=== PATIENT | female | born 1960 | race Caucasian/White ===

== ENCOUNTER 2016-04-09 08:06 | Day surgery (SDC) | payer BC ==
[2016-04-03 09:02] VITALS: BMI 31.8
[~2016-04-09 08:06] MED LIST: LACTATED RINGERS 1,000 ML IV SCH
[2016-04-09] MEDS ORDERED: LIDOCAINE 1% 20 ML VIAL (10MG/ML) FOR IV START INTRADERMA ONE (08:23)
[2016-04-09 08:28] VITALS: RESP 16; TEMP 97.9
[2016-04-09 08:35] LABS: Glucose,Whole Blood 146 mg/dL (75-99)
[2016-04-09] MEDS ORDERED: BUPIVACAINE (PF) 0.5% 30 ML VIAL ONE (08:38)
[2016-04-09] MEDS ORDERED: fentaNYL (PF) 50 MCG/ML 2 ML AMP ONE (08:38)
[2016-04-09] MEDS ORDERED: MIDAZOLAM 2 MG/2 ML VIAL ONE (08:38)
[2016-04-09] MEDS ORDERED: TRIAMCINOLONE ACETONIDE 40 MG/ML 1 ML VIAL ONE (08:38)
[2016-04-09 09:18] VITALS: PULSE 99
--- NOTE | 2016-04-09 09:27 | FL ---
EXAMINATION TYPE: FL guided pain mgmt statistic DATE OF EXAM: 04/09/2016 9:20 AM HISTORY: Flouroscopy time 15 seconds of fluoroscopy provided. IMPRESSION: 1. Fluoroscopy time.
[2016-04-09 09:31] VITALS: BP 130/86
--- NOTE | 2016-04-09 09:53 | P.PCN ---
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 POSTOPERATIVE DIAGNOSIS: L3-L4, L4-L5, and L5-S1 spondylosis without myelopathy and facet arthropathy. PROCEDURE DESCRIPTION: Patient presents for L3, L4 and L5 diagnostic medial branch blocks under fluoroscopic guidance. The procedure is performed using fluoroscopic guidance during needle placement to assure proper position and maximize safety. ANESTHESIA: Local with 1% lidocaine. Conscious sedation with Versed/fentanyl. EBL: Minimal PROCEDURE INDICATION: Patient with lumbar facet arthropathy signs and symptoms, here for diagnostic medial branch block#1. Pt does not take any blood thinning medications. PROCEDURE DESCRIPTION: The patient was seen and identified in the preoperative area. Risks, benefits, complications, and alternatives were discussed with the patient (including but not limited to incomplete pain relief, bleeding, infection, nerve damage, and allergies to medications), the patient agreed to proceed with the procedure and signed the consent after all questions were answered. Patient was taken to the OR and time out was completed to verify proper patient, position, laterality of pain, and allergies. Pt was placed in the prone position and a pillow was placed under the abdomen to reduce lumbar lordosis. The lumbosacral area was prepped and draped in the usual sterile fashion. Using oblique fluoroscopy, the eye of the "Ranjan dog" of right L4 vertebral body, which corresponds to the path of the medial branch originating from the level above, which is L3 in this case, was identified. Subsequently, a 22-gauge 3.5-inch spinal needle was inserted under fluoroscopic guidance toward the eye of the "Ranjan dog" of the right L4 vertebral body, corresponding to the junction of the superior articular process and the transverse process of the pedicle of the same level. After needle tip confirmation on lateral view and after negative aspiration for CSF and blood and without paresthesias, 1 mL of a 6 ml solution of 5 ml 0.5% preservative-free bupivacaine and 40 mg Kenalog was injected. Subsequently the needle was withdrawn intact and the same procedure was repeated for the right L4, right L5, left L3, left L4, and left L5 medial branches which together with right L3 medial branch correspond to the sensory innervation of the bilateral L3-L4, L4-L5, and L5-S1 facet joints. Needle was withdrawn intact after each injection. At the end of the procedure, the skin was cleansed and bandages were applied. COMPLICATIONS: None. DISPOSITION/PLAN: The patient taken to the recovery area after the procedure in a stable condition for observation. Patient was reexamined prior to discharge and there were no issues. Patient was discharged home, accompanied by an adult, after meeting discharged criteria. Discharge instructions were give to the patient by the staff. Patient was specifically instructed not to drive today and to rest for the rest of the day. Patient will return for MBB #2 if she gets relief.
== END 2016-04-09 09:57 | disposition home or self-care (01) ==
LOC: ORPAIN 08:06
PROVIDERS: ATTEND Anesthesiology
DX: M47.816 Spondylosis without myelopathy or radiculopathy, lumbar region (principal); M47.817 Spondylosis without myelopathy or radiculopathy, lumbosacral region; M46.96 Unspecified inflammatory spondylopathy, lumbar region; M46.97 Unspecified inflammatory spondylopathy, lumbosacral region; Z79.1 Long term (current) use of non-steroidal anti-inflammatories (NSAID); Z79.891 Long term (current) use of opiate analgesic
CPT/HCPCS: 64493; 64494; 64495; J2250; J3301; J3010

== ENCOUNTER 2016-05-15 07:04 | Day surgery (SDC) | payer BC ==
[2016-05-12 15:56] VITALS: BMI 31.1
[2016-05-15] MEDS ORDERED: LACTATED RINGERS 1,000 ML IV SCH (07:30)
[2016-05-15 07:42] VITALS: TEMP 97.9
[2016-05-15] MEDS ORDERED: LIDOCAINE 1% 20 ML VIAL (10MG/ML) FOR IV START INTRADERMA ONE (07:54)
[2016-05-15] MEDS ORDERED: fentaNYL (PF) 50 MCG/ML 2 ML AMP ONE (08:11)
[2016-05-15] MEDS ORDERED: MIDAZOLAM 2 MG/2 ML VIAL ONE (08:11)
[2016-05-15] MEDS ORDERED: TRIAMCINOLONE ACETONIDE 40 MG/ML 1 ML VIAL ONE (08:11)
[2016-05-15] MEDS ORDERED: BUPIVACAINE (PF) 0.5% 30 ML VIAL ONE (08:11)
[2016-05-15 08:15] LABS: Glucose,Whole Blood 132 mg/dL (75-99)
--- NOTE | 2016-05-15 08:45 | P.PCN ---
Date of Procedure: 05/15/16 Surgeon: Juwan Velazquez Pathology: none sent Condition: stable Disposition: PACU Description of Procedure: PREOPERATIVE DIAGNOSIS: L3-L4, L4-L5, and L5-S1 spondylosis without myelopathy and facet arthropathy. POSTOPERATIVE DIAGNOSIS: L3-L4, L4-L5, and L5-S1 spondylosis without myelopathy and facet arthropathy. PROCEDURE DESCRIPTION: Patient presents for L3, L4 and L5 diagnostic medial branch blocks under fluoroscopic guidance. The procedure is performed using fluoroscopic guidance during needle placement to assure proper position and maximize safety. ANESTHESIA: Local with 1% lidocaine. Conscious sedation with Versed/fentanyl. EBL: Minimal PROCEDURE INDICATION: Patient with lumbar facet arthropathy signs and symptoms, here for diagnostic medial branch block #2. Pt does not take any blood thinning medications. PROCEDURE DESCRIPTION: The patient was seen and identified in the preoperative area. Risks, benefits, complications, and alternatives were discussed with the patient (including but not limited to incomplete pain relief, bleeding, infection, nerve damage, and allergies to medications), the patient agreed to proceed with the procedure and signed the consent after all questions were answered. Patient was taken to the OR and time out was completed to verify proper patient, position, laterality of pain, and allergies. Pt was placed in the prone position and a pillow was placed under the abdomen to reduce lumbar lordosis. The lumbosacral area was prepped and draped in the usual sterile fashion. Using oblique fluoroscopy, the eye of the "Ranjan dog" of right L4 vertebral body, which corresponds to the path of the medial branch originating from the level above, which is L3 in this case, was identified. Subsequently, a 22-gauge 3.5-inch spinal needle was inserted under fluoroscopic guidance toward the eye of the "Ranjan dog" of the right L4 vertebral body, corresponding to the junction of the superior articular process and the transverse process of the pedicle of the same level. After needle tip confirmation on lateral view and after negative aspiration for CSF and blood and without paresthesias, 1 mL of a 6 ml solution of 5 ml 0.5% preservative-free bupivacaine and 40 mg Kenalog was injected. Subsequently the needle was withdrawn intact and the same procedure was repeated for the right L4, right L5, left L3, left L4, and left L5 medial branches which together with right L3 medial branch correspond to the sensory innervation of the bilateral L3-L4, L4-L5, and L5-S1 facet joints. Needle was withdrawn intact after each injection. At the end of the procedure, the skin was cleansed and bandages were applied. COMPLICATIONS: None. DISPOSITION/PLAN: The patient taken to the recovery area after the procedure in a stable condition for observation. Patient was reexamined prior to discharge and there were no issues. Patient was discharged home, accompanied by an adult, after meeting discharged criteria. Discharge instructions were give to the patient by the staff. Patient was specifically instructed not to drive today and to rest for the rest of the day. Patient will return for RFA next, left versus right.
[2016-05-15] MEDS ORDERED: IV FLUID CONTINUATION 700 ML IV ONE (08:51)
[2016-05-15 08:59] VITALS: RESP 18
[2016-05-15 09:21] VITALS: BP 131/81; PULSE 72
--- NOTE | 2016-05-15 09:29 | FL ---
EXAMINATION TYPE: FL guided pain mgmt statistic DATE OF EXAM: 05/15/2016 8:49 AM HISTORY: Flouroscopy time 19 seconds of fluoroscopy provided. IMPRESSION: 1. Fluoroscopy time.
--- NOTE | 2016-05-18 04:54 | CDI ---
Dear Dr. Velazquez, Per your procedure note, Conscious sedation with versed/fentanyl was documented. The Pain Procedure Record, however, has MAC check off under Anesthesia plan. This is conflicting documentation that needs clarification for proper reporting purposes. Please clarify if the anesthesia provided for Paul Dean was MAC (Monitored Anesthesia Care) or Conscious/Moderate Sedation. Please document this clarification as an addendum to the procedure note. Thank you for your time, Ashley Rosenbaum,[facility] Outpatient Complaint Manager [email or web address]
== END 2016-05-15 09:22 | disposition home or self-care (01) ==
LOC: ORPAIN 07:04
PROVIDERS: ATTEND Anesthesiology
DX: G89.29 Other chronic pain (principal); M54.5 Low back pain; M47.817 Spondylosis without myelopathy or radiculopathy, lumbosacral region; M46.97 Unspecified inflammatory spondylopathy, lumbosacral region; E13.9 Other specified diabetes mellitus without complications; Z79.1 Long term (current) use of non-steroidal anti-inflammatories (NSAID); Z79.891 Long term (current) use of opiate analgesic
CPT/HCPCS: 64493; 64494; 64495; 99152; J2250; J3301; J3010

== ENCOUNTER 2016-06-19 08:27 | Day surgery (SDC) | payer BC ==
[2016-06-19 10:47] VITALS: TEMP 97.8
[2016-06-19] MEDS ORDERED: LIDOCAINE 1% 20 ML VIAL (10MG/ML) FOR IV START INTRADERMA ONE (10:53)
[2016-06-19 10:57] LABS: Glucose,Whole Blood 122 mg/dL (75-99)
[2016-06-19] MEDS ORDERED: fentaNYL (PF) 50 MCG/ML 2 ML AMP ONE (11:32)
[2016-06-19] MEDS ORDERED: MIDAZOLAM 2 MG/2 ML VIAL ONE (11:32)
[2016-06-19] MEDS ORDERED: BUPIVACAINE (PF) 0.5% 30 ML VIAL ONE (11:32)
[2016-06-19] MEDS ORDERED: TRIAMCINOLONE ACETONIDE 40 MG/ML 1 ML VIAL ONE (11:32)
--- NOTE | 2016-06-19 12:00 | P.PCN ---
Date of Procedure: 06/19/16 Procedure(s) Performed: PREOPERATIVE DIAGNOSIS: 1-Lumbar Spondylosis with Facet Arthropathy without myelopathy. POSTOPERATIVE DIAGNOSIS: 1- Lumbar Spondylosis with Facet Arthropathy without myelopathy. PROCEDURES : Left Radiofrequency thermocoagulation, L3-L4, L4-L5, and L5-S1 medial branch, with fluoroscopic guidance ANESTHESIA: IV sedation with versed mg and fentaneyl mcg and local infiltration with lidocaine 1% 6 ml EBL: Minimal PROCEDURE INDICATION: The patient with low back pain secondary to lumbar facet arthropathy who had more than 50% relief of her pain with previous diagnostic lumbar medial branch block with bupivacaine. PROCEDURE DESCRIPTION / TECHNIQUE: The patient was seen and identified in the preoperative area. Risks, benefits, complications, including but not limited to risk of infection ,bleeding , allergic reactions to the medications and no complete pain releife , and alternatives were discussed with the patient, the patient agreed to proceed with the procedure and signed the consent. IV was started. Vital signs remained stable throughout the procedure. Patient was taken to the OR and time out was completed. The patient was placed in the prone position on the procedure table. The lumber area was prepped and draped in the usual sterile fashion. . Vital signs were closely monitored during the procedure .IV sedation was used during the procedure to decrease patients anxiety. Using AP and then oblique fluoroscopy, the ``eye of the Ranjan dog corresponding to the connection between the superior and transverse articular processes of right L3, L4, and L5 were identified, marked, and localized with 1 % lidocaine. Subsequently, a 18 -yt radiofrequency cannula with a 10- mm active tip was advanced guided by fluoroscopy to each of the ``eyes of the Ranjan dog at Left L3, L4, and L5. Each site then underwent sensory testing at 50 Hz and 0 to 1 volt and motor testing at 2.5 Hz and 0 to 3 volt with local stimulation, but no radicular symptoms down the legs. Thereafter the Left L3-4, L4-5, and L5-S1 sites underwent radiofrequency thermocoagulation at 80 degrees celsius for 90 seconds after injecting 0.5 ml of PF lidocaine 1%. then After the thermocoagulation done , 1 ml of the block solution containing Kenalog 40 mg and 3 ml of marain 0.5% was injected at the left L3-4 , L4-5 , and L5-S1, levels after negative aspiration of CSF and blood and with no paresthesias. Cannulas were retracted while injecting lidocaine 1% until the needle is out. At the end of the procedure, the skin was cleansed and bandages were applied. COMPLICATIONS: No acute complications. DISPOSITION / PLANS: The patient was placed in a supine position and transferred to the recovery area in a stable condition for observation and was discharged from the recovery room after meeting discharge criteria. Home discharge instructions given to the patient by the staff. The patient was reexamined prior to discharge. The patient will schedule a follow up in the clinic in 2-4 weeks ,and we will do the radiofrequency on the right side
[2016-06-19] MEDS ORDERED: IV FLUID CONTINUATION 1,000 ML IV ONE (12:11)
[2016-06-19 12:14] VITALS: RESP 18
[2016-06-19 12:27] VITALS: BP 165/70; PULSE 77
--- NOTE | 2016-06-19 12:30 | FL ---
Fluoroscopy HISTORY: Pain 12 seconds fluoroscopy time supplied to the referring clinician. 3 intraoperative C-arm images docum ent the procedure. See dictated report from anesthesia.
== END 2016-06-19 12:50 | disposition home or self-care (01) ==
LOC: ORPAIN 08:27
PROVIDERS: ATTEND Specialist
DX: M47.816 Spondylosis without myelopathy or radiculopathy, lumbar region (principal); M46.96 Unspecified inflammatory spondylopathy, lumbar region
CPT/HCPCS: 64636 ×2; 64635; 99152; 99153; J2250; J3301; J3010

== ENCOUNTER 2016-09-17 09:08 | Day surgery (SDC) | payer BC ==
[2016-09-12 16:06] VITALS: BMI 31.4
[2016-09-17] MEDS ORDERED: LACTATED RINGERS 1,000 ML IV SCH (09:15)
[2016-09-17] MEDS ORDERED: LIDOCAINE 1% 20 ML VIAL (10MG/ML) FOR IV START INTRADERMA ONE (09:45)
[2016-09-17 09:46] LABS: Glucose,Whole Blood 153 mg/dL (75-99)
[2016-09-17 09:51] VITALS: TEMP 98.1
[2016-09-17] MEDS ORDERED: IOHEXOL 180 MG/ML 1 ML ML ONE (09:56)
[2016-09-17] MEDS ORDERED: MIDAZOLAM 2 MG/2 ML VIAL ONE (09:56)
[2016-09-17] MEDS ORDERED: fentaNYL (PF) 50 MCG/ML 2 ML AMP ONE (09:56)
[2016-09-17] MEDS ORDERED: DEXAMETHASONE SOD PHOS (MDV) 100 MG/10 ML VIAL ONE (09:56)
--- NOTE | 2016-09-17 10:24 | P.PCN ---
Date of Procedure: 09/17/16 Preoperative Diagnosis: Postoperative Diagnosis: Procedure(s) Performed: Implants: Surgeon: Juwan Velazquez Pathology: none sent Condition: stable Disposition: PACU Indications for Procedure: Operative Findings: Description of Procedure: PREOPERATIVE DIAGNOSIS: Lumbar spondylosis without myelopathy and facet arthropathy POSTOPERATIVE DIAGNOSIS: Lumbar spondylosis without myelopathy and facet arthropathy PROCEDURES: Right Radiofrequency thermocoagulation, L3, L4, and L5 medial branch , with fluoroscopic guidance. ANESTHESIA: 1% lidocaine plain; Conscious sedation with versed/fentanyl EBL: Minimal PROCEDURE INDICATION: The patient with low back pain secondary to lumbar arthropathy who had more than 50% relief of pain with previous diagnostic lumbar medial branch block with bupivacaine. Patient presents for R lumbar RFA today (left side done in May); no use of blood thinners. PROCEDURE DESCRIPTION / TECHNIQUE: The patient was seen and identified in the preoperative area. Risks, benefits, complications, and alternatives were discussed with the patient (including but not limited to incomplete pain relief , bleeding, infection, nerve damage, and allergies to medications), the patient agreed to proceed with the procedure and signed the consent after all questions were answered. Patient was taken to the OR and time out was completed to verify proper patient , position, laterality of pain, and allergies. Pt was placed in the prone position. IV was started. Vital signs remained stable throughout the procedure. A pillow was placed under the patients chest to decrease lordosis. The lumbosacral area was prepped and draped in the usual sterile fashion. Vital signs were closely monitored during the procedure. Conscious sedation was used during the procedure to decrease patients anxiety. Using AP and then oblique fluoroscopy, the eye of the Ranjan dog corresponding to the connection between the superior and transverse articular processes of right L4, L5 and top of the sacrum were identified, marked, and localized with 1% lidocaine. Subsequently, a 20 gauge, 100-mm radiofrequency cannula with a 10-mm active tip was advanced guided by fluoroscopy to each of the eyes of the Ranjan dog at right L3, L4, and L5 medial branches. Each site then underwent sensory testing at 50 Hz and 0 to 1 volt and motor testing at 2 Hz and 0 to 3 volt with local stimulation, but no radicular symptoms down the legs. Thereafter the right L3, L4, and L5 medial branch sites underwent radiofrequency thermocoagulation at 80 degrees Celsius for 90 seconds after injecting 0.5 ml of PF lidocaine 1%. After thermocoagulation, 1 ml of the block solution containing Kenalog 40 mg and 2 mL of preservative-free normal saline was injected at the right L3, L4, and L5 medial branch levels after negative aspiration of CSF and blood and with no paresthesias. Cannulas were retracted while injecting lidocaine 1% until the needles were removed. At the end of the procedure, the skin was cleansed and bandages were applied. COMPLICATIONS: No acute complications. DISPOSITION / PLANS: The patient was placed in a supine position and transferred to the recovery area in a stable condition for observation and was discharged from the recovery room after meeting discharge criteria. Home discharge instructions given to the patient by the staff. The patient was reexamined prior to discharge. The patient will schedule a follow up in the clinic in 2-4 weeks as both RFAs completed.
[2016-09-17] MEDS ORDERED: IV FLUID CONTINUATION 1,000 ML IV ONE (10:30)
[2016-09-17 10:39] VITALS: RESP 16
--- NOTE | 2016-09-17 10:41 | FL ---
Fluoroscopy HISTORY: Pain 9 seconds fluoroscopy time supplied to the referring clinician. 3 intraoperative C-arm images docume nt the procedure. See dictated report from anesthesia.
[2016-09-17 10:44] VITALS: BP 125/82; PULSE 85
== END 2016-09-17 11:00 | disposition home or self-care (01) ==
LOC: ORPAIN 09:08
PROVIDERS: ATTEND Anesthesiology
DX: G89.29 Other chronic pain (principal); M47.816 Spondylosis without myelopathy or radiculopathy, lumbar region; M46.96 Unspecified inflammatory spondylopathy, lumbar region; E66.9 Obesity, unspecified; Z79.891 Long term (current) use of opiate analgesic; Z79.899 Other long term (current) drug therapy
CPT/HCPCS: 64635; 64636 ×2; 99152; J2250; Q9965; J3010; J1100

== ENCOUNTER → 2016-10-03 | Outpatient (CLI) | payer BC ==
[2016-10-03 18:06] LABS: Basophils % (A) 1 %; CH 33.2; CHCM 34.9; Eosinophils # (A) 0.2 k/uL (0-0.7); Eosinophils % (A) 4 %; HCT 38.6 % (34.0-46.0); HDW 2.63; HGB 13.7 gm/dL (11.4-16.0); Luc # (Auto) 0.11; Luc % (Auto) 2; Lymphocytes # (A) 1.9 k/uL (1.0-4.8); Lymphocytes % (A) 34 %; MCH 33.8 pg (25.0-35.0); MCHC 35.3 g/dL (31.0-37.0); MCV 95.6 fL (80.0-100.0); Mean Platelet Volume 8.6; Monocytes # (A) 0.3 k/uL (0-1.0); Monocytes % (A) 5 %; Neutrophils % (A) 55 %; RBC 4.04 m/uL (3.80-5.40); RDW 12.8 % (11.5-15.5); WBC 5.5 k/uL (3.8-10.6); WBC (Perox) 5.84
[2016-10-03 18:15] LABS: ALT 55 U/L (9-52); AST 32 U/L (14-36); Alkaline Phosphatase 102 U/L (38-126); Anion Gap 15 mmol/L; Blood Urea Nitrogen 13 mg/dL (7-17); Calcium 9.7 mg/dL (8.4-10.2); Carbon Dioxide 20 mmol/L (22-30); Chloride 107 mmol/L (98-107); Cholesterol 192 mg/dL (<200); Glucose 182 mg/dL (74-99); HDL Cholesterol 35 mg/dL (40-60); Non-African American GFR(MDRD) >60 (>60 ml/min/1.73 sqM); Potassium 4.5 mmol/L (3.5-5.1); Sodium 142 mmol/L (137-145); Total Bilirubin 0.9 mg/dL (0.2-1.3); Total Protein 7.6 g/dL (6.3-8.2); Triglycerides 331 mg/dL (<150)
[2016-10-04 00:50] LABS: Hemoglobin A1C 7.5 % (4.2-6.1)
[2016-10-04 12:07] LABS: Urine Creatinine 269.3 mg/dL
== END | disposition home or self-care (01) ==
LOC: MMGSC 10:29
PROVIDERS: ATTEND Family Medicine
DX: E11.9 Type 2 diabetes mellitus without complications (principal); I10 Essential (primary) hypertension
CPT/HCPCS: 36415; 80053; 80061; 82043; 82570; 83036; 85025

== ENCOUNTER → 2016-11-10 | Outpatient (CLI) | payer BC ==
[2016-11-10 13:48] VITALS: BP 130/86; PULSE 106; RESP 18; TEMP 98.2
--- NOTE | 2016-11-10 14:09 | P.PN ---
Progress Note - Text This is a 56-year-old female with lower back pain due to lumbar spondylosis without myelopathy. The patient had RFA on the lumbar medial branches bilaterally. Today she feels pain on the left side of her lower back With an intensity of 7 out of 10. By physical exam she has tenderness around the left sacroiliac joint however Paolo's test was negative on the left side. She had RFA on the left lumbar medial branches in May of this year and on the right side in August of this year. She states that she does not have any pain right now on the right side of her lower back and she denies any pain in her legs. I think the patient may have some inflammation her left sacroiliac joint and we can do only one injection on the left sacroiliac joint was steroid injection, does not help the patient's pain then we can plan on repeating the RFA on the left lumbar medial branches under fluoroscopic guidance.
== END ==
LOC: PNWHC3 13:32
PROVIDERS: ATTEND Anesthesiology
DX: M54.5 Low back pain (principal)
CPT/HCPCS: 99211

== ENCOUNTER 2016-11-11 09:58 | Day surgery (SDC) | payer BC ==
[2016-11-11 10:10] VITALS: RESP 16; TEMP 96.9
[2016-11-11 10:11] LABS: Glucose,Whole Blood 148 mg/dL (75-99)
[2016-11-11] MEDS ORDERED: LACTATED RINGERS 1,000 ML IV ONE (10:11)
[2016-11-11] MEDS ORDERED: LIDOCAINE 1% 20 ML VIAL (10MG/ML) FOR IV START INTRADERMA ONE (10:11)
--- NOTE | 2016-11-11 10:46 | P.PCN ---
Date of Procedure: 11/11/16 Preoperative Diagnosis: Postoperative Diagnosis: Procedure(s) Performed: Implants: Surgeon: Juwan Velazquez Pathology: none sent Condition: stable Disposition: PACU Indications for Procedure: Operative Findings: Description of Procedure: PREOPERATIVE DIAGNOSIS: 1-Bilateral sacroiliitis. POSTOPERATIVE DIAGNOSIS:. 1-Bilateral sacroiliitis. PROCEDURES: LEFT (only) Sacroiliac joint steroid injection with fluoroscopic guidance ANESTHESIA: Local with 1% lidocaine; conscious sedation EBL: Minimal. PROCEDURE INDICATIONS: This patient with a history of low back pain secondary to sacroiliitis and lumbar DDD unresponsive to conservative management, much worse on left side. No use of blood thinners. PROCEDURE DESCRIPTION: The patient was seen and identified in the preoperative area. Risks, benefits, complications, and alternatives were discussed with the patient (including but not limited to incomplete pain relief, bleeding, infection, nerve damage, and allergies to medications), the patient agreed to proceed with the procedure and signed the consent after all questions were answered. Patient was taken to the OR and time out was completed to verify proper patient , position, laterality of pain, and allergies. Pt was placed in the prone position and a pillow was placed under the abdomen to reduce lumbar lordosis. The lumbosacral area was prepped and draped in the usual sterile fashion. Critical pause was taken. Vital signs were closely monitored during the procedure. The fluoroscopic camera was placed in contralateral oblique view and right sacroiliiac joint lower pole was identified. After local infiltration with 1% lidocaine 2 ml, Subsequently, a 22-gauge 3.5 inch spinal needle was introduced into the posteroinferior aspect of the left sacroiliac joint under direct fluoroscopic visualization. Subsequently, all 4 ml of a solution of a total of 4 ml solution containing total 3 mL of 0.5% preservative-free bupivicaine mixed with 40 mg of Kenalog was injected after negative aspiration for CSF, blood, and air and negative for paresthesia. Needle was withdrawn intact. Skin was cleansed, and bandages were applied. COMPLICATIONS: None. COMMENTS: DISPOSITION / PLANS: The patient was placed in a supine position and transferred to the recovery area in a stable condition for observation and was discharged from the recovery room after meeting discharge criteria. Home discharge instructions given to the patient by the staff. The patient was reexamined prior to discharge. The patient will schedule a follow up in clinic in 2-4 weeks.
[2016-11-11] MEDS ORDERED: IV FLUID CONTINUATION 1,000 ML IV ONE (10:55)
[2016-11-11 11:12] VITALS: BP 124/65; PULSE 83
--- NOTE | 2016-11-11 11:47 | FL ---
Fluoroscopy HISTORY: Pain 3 seconds fluoroscopy time supplied to the referring clinician. 2 intraoperative C-arm images docume nt the procedure. See dictated report from anesthesia.
== END 2016-11-11 11:26 | disposition home or self-care (01) ==
LOC: ORPAIN 09:58
PROVIDERS: ATTEND Anesthesiology
DX: M46.1 Sacroiliitis, not elsewhere classified (principal); M51.36 Other intervertebral disc degeneration, lumbar region
CPT/HCPCS: 27096; J2250; J3301; Q9965; J3010; 99152

== ENCOUNTER → 2017-01-06 | Outpatient (CLI) | payer BC ==
[2017-01-06 20:21] LABS: Hemoglobin A1C 6.7 % (4.2-6.1)
== END ==
LOC: MMGSC 09:43
PROVIDERS: ATTEND Family Medicine
DX: E11.9 Type 2 diabetes mellitus without complications (principal)
CPT/HCPCS: 36415; 83036

== ENCOUNTER → 2017-05-14 | Outpatient (CLI) | payer BC ==
[2017-05-14 18:51] LABS: ALT 44 U/L (9-52); AST 38 U/L (14-36); Albumin 4.6 g/dL (3.5-5.0); Alkaline Phosphatase 93 U/L (38-126); Anion Gap 16 mmol/L; Blood Urea Nitrogen 17 mg/dL (7-17); Carbon Dioxide 20 mmol/L (22-30); Chloride 107 mmol/L (98-107); Cholesterol 190 mg/dL (<200); Glucose 148 mg/dL (74-99); HDL Cholesterol 39 mg/dL (40-60); LDL Cholesterol,Calculated 93 mg/dL (0-99); Potassium 4.4 mmol/L (3.5-5.1); Sodium 143 mmol/L (137-145); Total Bilirubin 0.7 mg/dL (0.2-1.3); Total Protein 7.9 g/dL (6.3-8.2); Triglycerides 288 mg/dL (<150)
[2017-05-14 20:09] LABS: Basophils % (A) 1 %; Eosinophils # (A) 0.1 k/uL (0-0.7); Eosinophils % (A) 2 %; HCT 39.9 % (34.0-46.0); HGB 12.7 gm/dL (11.4-16.0); Lymphocytes # (A) 2.3 k/uL (1.0-4.8); Lymphocytes % (A) 40 %; MCH 31.8 pg (25.0-35.0); MCHC 31.8 g/dL (31.0-37.0); Mean Platelet Volume 8.1; Monocytes # (A) 0.3 k/uL (0-1.0); Monocytes % (A) 6 %; Neutrophils % (A) 51 %; Platelet Count 250 k/uL (150-450); RBC 3.99 m/uL (3.80-5.40); RDW 12.9 % (11.5-15.5); WBC 5.8 k/uL (3.8-10.6)
[2017-05-15 03:05] LABS: Hemoglobin A1C 7.4 % (4.0-6.0)
== END | disposition home or self-care (01) ==
LOC: MMGSC 11:42
PROVIDERS: ATTEND Family Medicine
DX: E11.9 Type 2 diabetes mellitus without complications (principal); E78.5 Hyperlipidemia, unspecified
CPT/HCPCS: 36415; 80053; 80061; 82043; 82570; 83036; 85025

== ENCOUNTER 2018-09-14 11:46 | Day surgery (SDC) | payer BC ==
[2018-09-08 13:21] VITALS: BMI 30.9
--- NOTE | 2018-09-13 09:28 | HP ---
HISTORY AND PHYSICAL CHIEF COMPLAINT: Right ring finger pain and locking. 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 She says it is worse in the morning. She has been taking ibuprofen with only partial temporary relief. PAST MEDICAL HISTORY: Significant for left hand trigger finger. PAST SURGICAL HISTORY: Significant for left hand trigger finger release, shoulder arthroscopy, hysterectomy, ovarian surgery, and gallbladder removal. CURRENT MEDICATIONS: 1. Lisinopril. 2. Metformin. 3. Ibuprofen. 4. Claritin. ALLERGIES: She denies drug allergies. FAMILY HISTORY: Significant for cancer and heart disease. SOCIAL HISTORY: Negative for current tobacco or alcohol use. REVIEW OF SYSTEMS: Sixteen-point review of systems otherwise reviewed and is noncontributory. PHYSICAL EXAMINATION: On examination, the patient is approximately 5 feet, 6 inches, 195 pounds of endomorphic habitus. HEENT exam is nonfocal. Neck is supple. She is nontender about the right shoulder, elbow and wrist. On examination of the right hand, she is tender over the A1 kobe of the ring finger. She has palpable triggering. She has mild digital stiffness. Light touch is distally intact. IMPRESSION: Symptomatic right ring trigger finger. RECOMMENDATIONS: I talked to the patient at length regarding her condition along with treatment options. At this point, she is quite symptomatic and opts to proceed with surgery. We will plan to proceed with right ring trigger finger release. Risks and benefits were discussed at length in layman's terms. We will likely perform that as an outpatient procedure utilizing local anesthetic and IV sedation. MMODL / IJN: [id number] /
[~2018-09-14 11:46] MED LIST changes: +DEXAMETHASONE SOD PHOSPHATE 10 MG/ML 1 ML VIAL IV ONE; +HYDROmorphone 0.5 MG/0.5 ML SYRINGE IVP PRN; +LIDOCAINE 1% 20 ML VIAL (10MG/ML) FOR IV START INTRADERMA PRN; +MIDAZOLAM 2 MG/2 ML VIAL IV PRN; +ONDANSETRON 4 MG/2 ML VIAL IVP ONE; +SCOPOLAMINE 1.5MG/72HR PATCH TRANSDERM ONE; +ceFAZolin IN SWFI 2 GM/20 ML SYRINGE IVP ONE
[2018-09-14 12:30] LABS: Glucose,Whole Blood 136 mg/dL (75-99)
[2018-09-14] MEDS ORDERED: KETOROLAC 30 MG/ML 1 ML VIAL IVP ONE (12:37)
[2018-09-14] MEDS ORDERED: fentaNYL (PF) 50 MCG/ML 2 ML AMP ONE (13:24)
[2018-09-14] MEDS ORDERED: PROPOFOL 10 MG/ML 20 ML VIAL IV ONE (13:24)
[2018-09-14] MEDS ORDERED: MIDAZOLAM 2 MG/2 ML VIAL ONE (13:24)
[2018-09-14] MEDS ORDERED: LIDOCAINE 1% INJ 10MG/ML (20 ML MDV) ONE (13:24)
[2018-09-14] MEDS ORDERED: BUPIVACAINE (PF) 0.25% 30 ML VIAL SQ ONE ×3 (13:38→13:45)
--- NOTE | 2018-09-14 14:07 | P.OP ---
Date of Procedure: 09/14/18 Preoperative Diagnosis: Right ring trigger fingersymptomatic Postoperative Diagnosis: Same Procedure(s) Performed: Right ring trigger finger release Anesthesia: MAC, local Surgeon: Steven Hill Estimated Blood Loss (ml): 1 Pathology: none sent Condition: stable Disposition: PACU Indications for Procedure: The patient's a 58-year-old female who presents with persistent pain and locking of her right ring finger despite conservative measures. A discussion of the risks and benefits of continued conservative measures versus operative intervention was made with patient. She opted to proceed. Operative risks to include infection, neurovascular injury, recurrence of symptoms and need for subsequent procedures was discussed. Informed consent was obtained. Operative Findings: As below Description of Procedure: The patient was brought to the operating room, and after placement of an LMA, the right upper extremity was prepped and draped in normal fashion. The proposed incision site was outlined with a skin marker over the palmar crease over the fourth metacarpal head. 7 mL of quarter percent plain Marcaine was injected. A 1 cm incision was then made over this crease. Subcutaneous tissues were divided bluntly. The neurovascular bundles were gently retracted. The A1 kobe was identified and transected under direct visualization proximal and distal. There was a small ganglion cyst of the tendon sheath that was opened. The flexor tendon was inspected and a nodular appearance was noted. Free excursion was noted. The wound was irrigated normal saline. The skin was reapproximated with simple 4-0 nylon sutures. A sterile dressing was applied. The patient was awoken from anesthesia and transferred to recovery room in good condition. Blood loss was estimated 1 mL. No complications were incurred. Sponge and needle counts were correct in the case.
[2018-09-14 14:16] VITALS: TEMP 97.1
[2018-09-14 14:20] VITALS: RESP 16
[2018-09-14] MEDS ORDERED: LACTATED RINGERS 1,000 ML IV ONE (14:28)
[2018-09-14 15:59] VITALS: BP 129/87; PULSE 83
== END 2018-09-14 16:23 | disposition home or self-care (01) ==
LOC: OR 11:46
PROVIDERS: ATTEND Orthopaedic Surgery
DX: M65.341 Trigger finger, right ring finger (principal); I10 Essential (primary) hypertension; E78.5 Hyperlipidemia, unspecified; G47.33 Obstructive sleep apnea (adult) (pediatric); E11.9 Type 2 diabetes mellitus without complications; J32.9 Chronic sinusitis, unspecified; M19.90 Unspecified osteoarthritis, unspecified site; R05 Cough; Z79.899 Other long term (current) drug therapy; Z79.84 Long term (current) use of oral hypoglycemic drugs; Z79.1 Long term (current) use of non-steroidal anti-inflammatories (NSAID); Z79.891 Long term (current) use of opiate analgesic
CPT/HCPCS: 26055; J2250; J1100; J2405; J2001; J3010; J1885; J2704

== ENCOUNTER → 2019-09-21 | Outpatient (CLI) | payer BC ==
[2019-09-21 10:09] VITALS: BP 126/61; PULSE 88; RESP 16
--- NOTE | 2019-09-21 10:10 | P.PAINCN ---
History of Present Illness - Reason for Consult Consult date: 09/21/19 - History of Present Illness This is 59 years old female with a chronic history of severe low back pain, she is diagnosed with lumbar spondylosis with lumbar facet arthropathy and lumbar degenerative disc disease and sacroiliitis, more than 3 years ago, patient was seen at [facility] pain clinic and we have done RFA of the medial branch lumbar area, which helped her low back pain significantly and the pain relief lasted for 6 months, Lipitor she started complaining of severe axial low back pain, and the pain is constant and increases with any activity, she denies any motor or sensory deficits she denies any fever or night sweats she has no change in the bowel movements or urination, she is currently on Spruce 7.5/325 twice a day and Motrin 800 mg every 8 hours when necessary and she is getting prescriptions refilled from her primary care, and she denies any side effect of the medication Past Medical History Past Medical History: Diabetes Mellitus, Hyperlipidemia, Hypertension, Osteoarthritis (OA), Sleep Apnea/CPAP/BIPAP Additional Past Medical History / Comment(s): migraines, dx TIA's yrs ago, chronic back pain. Does not use C-PAP. History of Any Multi-Drug Resistant Organisms: None Reported Past Surgical History: Cholecystectomy, Hysterectomy, Orthopedic Surgery Additional Past Surgical History / Comment(s): left hand -trigger finger, left knee arthroscopy, left oophorectomy/salpingectomy,lt shoulder surgery, pain procedures. rt hand trigger finger Past Anesthesia/Blood Transfusion Reactions: Previous Problems w/ Anesthesia, Motion Sickness, Postoperative Nausea & Vomiting (PONV) Additional Past Anesthesia/Blood Transfusion Reaction / Comm: "took longer to come out" Smoking Status: Never smoker - Past Family History Sister(s) Family Medical History: Cancer Additional Family Medical History / Comment(s): colon Mother Family Medical History: Myocardial Infarction (MS) Brother(s) Family Medical History: Coronary Artery Disease (CAD) Additional Family Medical History / Comment(s): cabg Father Family Medical History: CVA/TIA Medications and Allergies Home Medications Medication Instructions Recorded Confirmed Type HYDROcodone/APAP 7.5-325MG [Spruce 1 tab PO BID PRN 02/09/09/16/19 History 7.5-325] Dapagliflozin Propanediol [Farxiga] 5 mg PO QAM 09/08/18 09/16/19 History Ibuprofen [Motrin] 800 mg PO Q8HR PRN 09/08/18 09/16/19 History Losartan Potassium 50 mg PO DAILY 09/08/18 09/16/19 History sitaGLIPtin [Januvia] 100 mg PO HS 09/08/18 09/16/19 History Atorvastatin(Dose Unknown) 1 tab PO DAILY 09/16/19 09/16/19 History Allergies Allergy/AdvReac Type Severity Reaction Status Date / Time No Known Allergies Allergy Verified 09/16/19 14:15 Physical Exam REVIEW OF ORGAN SYSTEMS: CONSTITUTIONAL: No fevers or chills. No recent weight loss. EYES: denies troubles with vision. HEENT: No difficulties with hearing. No nosebleeds. No difficulty swallowing. RESPIRATORY: Denies any troubles with breathing or dyspnea on exertion. CARDIOVASCULAR: Denies any chest pain, palpitations, or recent heart attacks. GASTROINTESTINAL: Denies fatty food intolerance. Has change in bowel habits and gas bloat. GENITOURINARY: Denies any blood in urine. Has increased urinary frequency. NEUROLOGICAL: no numbness and tingling along the distal e xtremities. No seizure disorders or headaches. MUSCULOSKELETAL: Has sever low back pain. SKIN:no skin cancer. No rash. PSYCHIATRIC: Denies current depression or suicidal thoughts. ENDOCRINE: Denies current thyroid disorders. Denies any blood sugar glucose intolerance. HEME/LYMPHATIC: Denies any lumps and bumps around the neck. History of deep venous thrombosis. ALLERGY/IMMUNOLOGY: No immunoglobulin therapy. No immune deficiencies. BREAST: Denies current breast lumps, pain or nipple discharge. Physical Examinations : Constitutiona : Cooperative , not in acute distress . HEENT : nech : supple , no Lymphadenopathy , normal thyroid size . : eyes no ptosis , no icterus, no photophobia . : ENT normal of hearing , normal oropharynx , no Thrush . Respiratory : Chest clear to auscultations Bilaterally , no wheezing , no Rhonchi . Cardiovascula : regular rate and rhythem , S1 , S2 , no S3 , no S4. Gastrointestina : abdomen soft no tenderness , bowel sounds , no organomegally . Genitourinary : Defferred . neurologic : Cranial nerve II to XII intact , no focal neurological deffecit . psychatric : alert , oriented X 3 , appropriate affect , intact judgment and insight . Lymphatic : no Lymphadenopathy . musculoskeltal : Lumber spine moter stegnth lower extremities ,thigh and legs 5/5 Right side , 5/5 Left side deep tendon reflexes : normal Knee Jerk , normal ankle Jerk lumber facet Loading Test= positive Right , positive Left Range of motion of the lumbar spine Flexion 30 degrees, extension 10 degrees strait leg raising test , positive at degree Fabere test= positive Right , and positive left . Results Comments: MRI of the lumbar spine done in 2010= multilevel lumbar degenerative disc disease and lumbar spondylosis and facet joint hypertrophy Assessment and Plan Plan: Assessment and plan=1-lumbar spondylosis with lumbar facet arthropathy. 2-lumbar degenerative disc disease. Patient will be schedualed for bilateral diagnostic medial branch block lumbar area at L3, L4, L5 to target the facet joint L4-5, L5-S1 PQRS Measure Charge Sheet Measure #130: Documentation of Current Meds in Medical Chart: Patient's medications documented in chart Measure #226: Tobacco Use: Screen & Cessation Intervention: Pt not a tobacco user Measure #111: Pneumonia Vaccination: Pneumococcal vaccine NOT administered or previously given Measure #47: Advance Care Plan: Advance care planning discussed & documented, pt chose/unable to give Measure #412: Opioid Treatment Agreement: No documentation of signed opioid treatment agreement Measure #408: Opioid Therapy Follow-up Evaluation: Patient had NO f/u eval minimum every 3 months during opioid therapy Measure #317: Preventitive Care & Scrn High Bld Press & F/U: Normal blood pressure, f/u not required Measure #128: Body Mass Index (BMI) Screening & Follow-up: BMI documented ABOVE normal parameters - f/u documented Measure #131: Pain Assessment & Follow-up: Pain positive & plan documented, Follow-up scheduled Measure #431: Unhealthy Alcohol Use Preventative Care & Scrn: Patient not identified as an unhealthy alcohol user PQRS Narrative: Smoking Status Never smoker Pain Intensity [Lower Back] 4 Hx Alcohol Use (MH) Yes: social Home Medications: Ambulatory Orders HYDROcodone/APAP 7.5-325MG [Spruce 7.5-325] 1 tab PO BID PRN 02/09/15 Dapagliflozin Propanediol [Farxiga] 5 mg PO QAM 09/08/18 Ibuprofen [Motrin] 800 mg PO Q8HR PRN 09/08/18 Losartan Potassium 50 mg PO DAILY 09/08/18 sitaGLIPtin [Januvia] 100 mg PO HS 09/08/18 Atorvastatin(Dose Unknown) 1 tab PO DAILY 09/16/19
== END | disposition home or self-care (01) ==
LOC: PNWHC3 09:28
PROVIDERS: ATTEND Specialist
DX: M47.816 Spondylosis without myelopathy or radiculopathy, lumbar region (principal); M46.96 Unspecified inflammatory spondylopathy, lumbar region; M51.36 Other intervertebral disc degeneration, lumbar region; E78.5 Hyperlipidemia, unspecified; I10 Essential (primary) hypertension; M19.90 Unspecified osteoarthritis, unspecified site; G43.909 Migraine, unspecified, not intractable, without status migrainosus; G47.33 Obstructive sleep apnea (adult) (pediatric); Z99.89 Dependence on other enabling machines and devices; Z79.899 Other long term (current) drug therapy; Z79.891 Long term (current) use of opiate analgesic
CPT/HCPCS: 99211

== ENCOUNTER 2019-10-04 06:09 | Day surgery (SDC) | payer BC ==
[2019-09-28 15:58] VITALS: BMI 31.4
[~2019-10-04 06:09] MED LIST changes: -DEXAMETHASONE SOD PHOSPHATE 10 MG/ML 1 ML VIAL IV ONE; -HYDROmorphone 0.5 MG/0.5 ML SYRINGE IVP PRN; -LIDOCAINE 1% 20 ML VIAL (10MG/ML) FOR IV START INTRADERMA PRN; -MIDAZOLAM 2 MG/2 ML VIAL IV PRN; -ONDANSETRON 4 MG/2 ML VIAL IVP ONE; -SCOPOLAMINE 1.5MG/72HR PATCH TRANSDERM ONE; -ceFAZolin IN SWFI 2 GM/20 ML SYRINGE IVP ONE
[2019-10-04 06:23] VITALS: TEMP 97.2
[2019-10-04 06:37] LABS: Glucose,Whole Blood 176 mg/dL (75-99)
[2019-10-04] MEDS ORDERED: MIDAZOLAM 2 MG/2 ML VIAL ONE (06:56)
[2019-10-04] MEDS ORDERED: fentaNYL (PF) 50 MCG/ML 2 ML AMP ONE (06:56)
[2019-10-04] MEDS ORDERED: ROPIVACAINE 5MG/ML 20ML VIAL ONE (06:56)
--- NOTE | 2019-10-04 07:13 | P.PCN ---
Date of Procedure: 10/04/19 Procedure(s) Performed: PREOPERATIVE DIAGNOSIS : 1- Lumbar spondylosis with Facet Arthropathy without myelopathy . POSTOPERATIVE DIAGNOSIS: 1- Lumbar spondylosis with Facet Arthropathy without myelopathy . PROCEDURE: Diagnostic bilateral L3 , L4 , and L5 medial branch block under fluoroscopy guidance(fluoroscopy images available in the radiology Department ) ( To target the facet joint between L4-5 , and L5-S1 ) ANESTHESIA:, moderate sedation with intravenous Versed 2 mg and Fentanyl 100 mcg. EBL: Minimal COMPLICATION: None. IV FLUIDS: 100 mL of normal saline. PROCEDURE INDICATION: Chronic low back pain secondary to Facet arthropathy unresponsive to conservative treatment. PROCEDURE DESCRIPTION: the patient was seen and identified in the preop holding area , risks and benefits and possible complications of the procedure and alternative were discussed with the patient, and the patient agreed to proceed with the procedure and signed the consent IV was started and vital signs monitored during the procedure and fluoroscopy was used to maximize the benefit and accuracy of the needle placement, and sedation was given to decrease patient anxiety, patient was taken to the procedure room and placed in prone position vital signs monitored in the back prepped with chlorhexidine X3 then under strict sterile technique using a right oblique fluoroscopy ,the junction of the transverse process and the superior articulating process of the right L3 , L4 , and L5 vertebra which corresponding to the fluoroscopy image of the eye of the Ranjan dog on the block side for the medial branches and subsequently , after local infiltration of skin and subcu tissuies with Ropivacaine 0.5 % , one mL at each level ,then 22-gauge Quincke-type needles , 3 needle was used , each one of them placed at the junction of the base of the transverse process and the superior articular process at the appropriate level, and the needle was advanced until the periosteum contacted, needle placement confirmed with AP oblique and lateral view and after appropriate needle placement confirmed, and after negative aspiration for heme and CSF and there was no paresthesia 1-1/2 mL of Ropivacaine 0.5% ,half mL injected at each level after negative aspiration the needle subsequently removed and the same procedure repeated for the left side at left side at L3 , L4 and L5 levels. At the end of the procedure and the needles removed and a bandage applied after the skin was cleaned the cleaning solution patient taken to recovery room in stable condition and monitors in the recovery room for 20-30 minutes and dischar ged home in stable condition after discharge criteria met and patient will follow up with the pain clinic in 2-4 weeks
[2019-10-04] MEDS ORDERED: IV FLUID CONTINUATION 1,000 ML IV ONE ×2 (07:17)
[2019-10-04 07:33] VITALS: BP 123/65; PULSE 86; RESP 17
--- NOTE | 2019-10-04 08:50 | FL ---
EXAMINATION TYPE: FL guided pain mgmt statistic DATE OF EXAM: 10/04/2019 HISTORY: Fluoroscopy time 6 seconds of fluoroscopy provided. IMPRESSION: 1. Fluoroscopy time.
== END 2019-10-04 07:58 | disposition home or self-care (01) ==
LOC: ORPAIN 06:09
PROVIDERS: ATTEND Specialist
DX: G89.29 Other chronic pain (principal); M47.816 Spondylosis without myelopathy or radiculopathy, lumbar region; E11.9 Type 2 diabetes mellitus without complications; I10 Essential (primary) hypertension; Z90.710 Acquired absence of both cervix and uterus

== ENCOUNTER 2019-10-18 07:19 | Day surgery (SDC) | payer BC ==
[2019-10-14 17:13] VITALS: BMI 31.6
[2019-10-18 08:01] VITALS: RESP 16; TEMP 97
[2019-10-18 08:10] LABS: Glucose,Whole Blood 176 mg/dL (75-99)
[2019-10-18] MEDS ORDERED: LIDOCAINE 1% (10MG/ML) FOR IV START INTRADERMA ONE (08:11)
[2019-10-18] MEDS ORDERED: MIDAZOLAM 2 MG/2 ML VIAL ONE (08:53)
[2019-10-18] MEDS ORDERED: IOPAMIDOL M200 10 ML VIAL ONE (08:53)
[2019-10-18] MEDS ORDERED: LIDOCAINE 4% (PF) 5 ML AMP ONE (08:53)
[2019-10-18] MEDS ORDERED: IV FLUID CONTINUATION 550 ML IV ONE (09:14)
--- NOTE | 2019-10-18 09:27 | P.PCN ---
Date of Procedure: 10/18/19 Procedure(s) Performed: PREOPERATIVE DIAGNOSIS : Lumbar spondylosis with Facet Arthropathy without myelopathy POSTOPERATIVE DIAGNOSIS: same PROCEDURE: Second Diagnostic lumbar medial branch block with fluoroscopy at L3, L4, L5 bilateral which covers facets L4-5 and L5-S1 ANESTHESIA: Local anesthetic; moderate IV sedation with Versed 3 mg, sedation time 10 minutes Fluoroscopy was used for the procedure and images were saved in the radiology portion of the chart. Surgeon: Charmaine Blackwell MD PROCEDURE INDICATION: Lumbar back pain without radiculopathy, not responsive to conservative management. PROCEDURE DESCRIPTION: the patient was seen and identified in the preop holding area , risks and benefits and possible complications of the procedure and alternatives were discussed with the patient, and the patient agreed to proceed with the procedure and signed the consent . IV was started , vital signs were monitored during the procedure and fluoroscopy was used to maximize the benefit and accuracy of the needle placement, and sedation was given to decrease patient anxiety. Patient was taken to the procedure room and placed in prone position. The lumbar region was prepped using chlorhexidineX-2. Under strict sterile technique using AP fluoroscopy the bilateral sacral ala were identified and using ipsilateral oblique fluoroscopy ,the junction of the transverse process and the superior articulating process of the L4, L5 vertebra which corresponds to the fluoroscopy image of the eye of the Ranjan dog for the medial branches were identified. Subsequently, after local infiltration of skin with lidocaine 1% 0.2 mL at each level , a 25-gauge 3.5" Quincke-type needle was placed at the junction of the base of the transverse process and the superior articular process at the appropriate level as well as the sacral ala, and the needle was advanced until the periosteum contacted, needle placement confirmed with AP and oblique fluoroscopy, 0.2 mL of Isovue 200 per level was injected which revealed no vascular uptake and after negative aspiration, 0.5 mL of lidocaine 4% was injected at each level and the needle subsequently removed . At the end of the procedure and the needles were removed and a bandage applied after the skin was cleaned. The patient was taken to recovery room in stable condition and monitors in the recovery room for 20-30 minutes and discharged home in stable condition after discharge criteria met and patient will follow up in clinic in 2 weeks EBL: Minimal COMPLICATION: None.
[2019-10-18 09:37] VITALS: BP 127/77; PULSE 86
--- NOTE | 2019-10-18 16:41 | FL ---
EXAMINATION TYPE: FL guided pain mgmt statistic DATE OF EXAM: 10/18/2019 CLINICAL HISTORY: Bilateral lumbar facet injections TECHNIQUE: Fluoroscopy. COMPARISON: None. FINDINGS: Fluoroscopic guidance was provided during procedure by performing physician in operating r oom. A total of 4 seconds of fluoroscopic time was utilized during the procedure and 3 spot images w as acquired. Please see performing physician's operative report for additional information. IMPRESSION: As Above.
== END 2019-10-18 09:50 | disposition home or self-care (01) ==
LOC: ORPAIN 07:19
PROVIDERS: ATTEND Anesthesiology
DX: M47.816 Spondylosis without myelopathy or radiculopathy, lumbar region (principal); E11.9 Type 2 diabetes mellitus without complications; Z90.710 Acquired absence of both cervix and uterus
CPT/HCPCS: 64493; 64494; J2001; J2250; Q9966; 99152

== ENCOUNTER → 2019-11-02 | Outpatient (CLI) | payer BC ==
[2019-11-02 09:48] VITALS: BP 116/80; PULSE 98; RESP 16; TEMP 98.3
--- NOTE | 2019-11-02 09:57 | P.PAINPG ---
Subjective Progress Note Date: 11/02/19 This is 59 years old female with a chronic history of severe low back pain, she is diagnosed with lumbar spondylosis with lumbar facet arthropathy and lumbar degenerative disc disease and sacroiliitis, more than 3 years ago, patient was seen at [facility] pain clinic and we have done RFA of the medial branch lumbar area in the past which helped her low back pain significantly and the pain relief lasted for 6 months. she started complaining of severe axial low back pain, and the pain is constant and increases with any activity, she denies any motor or sensory deficits she denies any fever or night sweats she has no change in the bowel movements or urination, she is currently on Alexis 7.5/325 twice a day and Motrin 800 mg every 8 hours when necessary and she is getting prescriptions refilled from her primary care, and she denies any side effect of the medication. At our last visit we wanted to make sure that her pain was still facet mediated in nature and since she has had bilateral MBB of L3, L4, and L5. She is here for follow up after her diagnostic blocks. Patient reports that her pain went from a 4-0 on the day after the blocks. Instead her pain has returned but she was very satisfied with the pain relief from the medial branch blocks. He would like to proceed with radiofrequency ablation. He is having no signs of cauda equina syndrome such as subtle anesthesia or bowel or bladder incontinence. Having no side effects of respiratory depression from her opioid medications. Physical Exam REVIEW OF ORGAN SYSTEMS: CONSTITUTIONAL: No fevers or chills. No recent weight loss. EYES: denies troubles with vision. HEENT: No difficulties with hearing. No nosebleeds. No difficulty swallowing. RESPIRATORY: Denies any troubles with breathing or dyspnea on exertion. CARDIOVASCULAR: Denies any chest pain, palpitations, or recent heart attacks. GASTROINTESTINAL: Denies fatty food intolerance. Has change in bowel habits and gas bloat. GENITOURINARY: Denies any blood in urine. Has increased urinary frequency. NEUROLOGICAL: no numbness and tingling along the distal extremities. No seizure disorders or headaches. MUSCULOSKELETAL: Has sever low back pain. SKIN:no skin cancer. No rash. PSYCHIATRIC: Denies current depression or suicidal thoughts. ENDOCRINE: Denies current thyroid disorders. Denies any blood sugar glucose intolerance. HEME/LYMPHATIC: Denies any lumps and bumps around the neck. History of deep venous thrombosis. ALLERGY/IMMUNOLOGY: No immunoglobulin therapy. No immune deficiencies. BREAST: Denies current breast lumps, pain or nipple discharge. Physical Examinations : Constitutiona : Cooperative , not in acute distress . HEENT : nech : supple , no Lymphadenopathy , normal thyroid size . : eyes no ptosis , no icterus, no photophobia . : ENT normal of hearing , normal oropharynx , no Thrush . Respiratory : Chest clear to auscultations Bilaterally , no wheezing , no Rhonchi . Cardiovascula : regular rate and rhythem , S1 , S2 , no S3 , no S4. Gastrointestina : abdomen soft no tenderness , bowel sounds , no organomegally . Genitourinary : Defferred . neurologic : Cranial nerve II to XII intact , no focal neurological deffecit . psychatric : alert , oriented X 3 , appropriate affect , intact judgment and insight . Lymphatic : no Lymphadenopathy . musculoskeltal : Lumber spine motor stregnth lower extremities ,thigh and legs 5/5 Right side , 5/5 Left side deep tendon reflexes : normal Knee Jerk , normal ankle Jerk lumber facet Loading Test= positive Ri ght , positive Left Range of motion of the lumbar spine Flexion 30 degrees, extension 10 degrees Results Comments: MRI of the lumbar spine done in 2010= multilevel lumbar degenerative disc disease and lumbar spondylosis and facet joint hypertrophy Assessment and Plan Plan: Assessment and plan=1-lumbar spondylosis with lumbar facet arthropathy. 2-lumbar degenerative disc disease. Patient will be schedualed for bilateral RFA lumbar area at L3, L4, L5 to target the facet joint L4-5, L5-S1 Smoking Status Never smoker Pain Intensity [Lower Back] 4 Hx Alcohol Use (MH) Yes: social PQRS Measure Charge Sheet Measure #226: Tobacco Use: Screen & Cessation Intervention: Pt not a tobacco user Measure #111: Pneumonia Vaccination: Pneumococcal vaccine NOT administered or previously given Measure #47: Advance Care Plan: Advance care planning discussed & documented, pt chose/unable to give Measure #412: Opioid Treatment Agreement: No documentation of signed opioid treatment agreement Measure #408: Opioid Therapy Follow-up Evaluation: Patient had NO f/u eval minimum every 3 months during opioid therapy Measure #131: Pain Assessment & Follow-up: Pain positive & plan documented Measure #431: Unhealthy Alcohol Use Preventative Care & Scrn: Patient not identified as an unhealthy alcohol user PQRS Narrative: Smoking Status Never smoker Pain Intensity [Back] 3 Scale Used Numeric (1 - 10) Hx Alcohol Use (MH) Yes: social Home Medications: Ambulatory Orders HYDROcodone/APAP 7.5-325MG [Alexis 7.5-325] 1 tab PO BID PRN 02/09/15 Dapagliflozin Propanediol [Farxiga] 5 mg PO QAM 09/08/18 Ibuprofen [Motrin] 800 mg PO Q8HR PRN 09/08/18 Losartan Potassium 50 mg PO DAILY 09/08/18 sitaGLIPtin [Januvia] 100 mg PO HS 09/08/18 Atorvastatin [Lipitor] 10 mg PO DAILY 09/21/19 Glimepiride [Amaryl] 2 mg PO HS 09/21/19 Pseudoephedrine [Sudafed] 60 mg PO Q4-6H PRN 09/21/19 Controlled Substance Measures - Controlled Substance Measures Is patient prescribed a controlled substance at discharge?: No
== END | disposition home or self-care (01) ==
LOC: PNWHC3 09:35
PROVIDERS: ATTEND Anesthesiology
DX: G89.29 Other chronic pain (principal); M51.36 Other intervertebral disc degeneration, lumbar region; M47.816 Spondylosis without myelopathy or radiculopathy, lumbar region; M46.1 Sacroiliitis, not elsewhere classified; Z98.890 Other specified postprocedural states; Z79.84 Long term (current) use of oral hypoglycemic drugs; Z79.899 Other long term (current) drug therapy
CPT/HCPCS: 99211

== ENCOUNTER 2019-11-24 06:16 | Day surgery (SDC) | payer BC ==
[2019-11-18 15:03] VITALS: BMI 31.6
[2019-11-24 06:47] VITALS: RESP 16; TEMP 97.4
[2019-11-24 06:47] LABS: Glucose,Whole Blood 178 mg/dL (75-99)
[2019-11-24] MEDS ORDERED: LIDOCAINE 1% (10MG/ML) FOR IV START SQ ONE (06:47)
[2019-11-24] MEDS ORDERED: ROPIVACAINE 5MG/ML 20ML VIAL ONE (06:58)
[2019-11-24] MEDS ORDERED: fentaNYL (PF) 50 MCG/ML 2 ML AMP ONE (06:58)
[2019-11-24] MEDS ORDERED: MIDAZOLAM 2 MG/2 ML VIAL ONE (06:58)
[2019-11-24] MEDS ORDERED: methylPREDNISolone ACETATE 40 MG/ML 1 ML VIAL ONE (06:58)
--- NOTE | 2019-11-24 07:30 | P.PCN ---
Date of Procedure: 11/24/19 Procedure(s) Performed: PREOPERATIVE DIAGNOSIS: 1-Lumbar Spondylosis with Facet Arthropathy without myelopathy. 2- Lumber degenerative disc disease POSTOPERATIVE DIAGNOSIS: 1- Lumbar Spondylosis with Facet Arthropathy without myelopathy. 2- Lumber degenerative disc disease PROCEDURES : Bilateral Radiofrequency thermocoagulation, L3 , L4 , and L5 medial branch, with fluoroscopic guidance (fluoroscopy images available in the radiology department) ( to denervate the facet joint at L4-5 ,and L5-S1 levels ) ANESTHESIA: Moderate sedation with intravenous versed 2 mg and fentaneyl 100 mcg, and local infiltration with Ropivacaine 0.5 % . EBL: Minimal PROCEDURE INDICATION: The patient with low back pain secondary to lumbar facet arthropathy who had more than 50% relief of her pain with previous diagnostic lumbar medial branch block with bupivacaine. PROCEDURE DESCRIPTION / TECHNIQUE: The patient was seen and identified in the preoperative area. Risks, benefits, complications, including but not limited to risk of infection ,bleeding , allergic reactions to the medications and no complete pain releife , and alternatives were discussed with the patient, the patient agreed to proceed with the procedure and signed the consent. IV was started. Vital signs remained stable throughout the procedure. Patient was taken to the OR and time out was completed. The patient was placed in the prone position on the procedure table. The lumber area was prepped and draped in the usual sterile fashion. . Vital signs were closely monitored during the procedure .IV sedation was used during the procedure to decrease patients anxiety. Using AP and then oblique fluoroscopy, the ``eye of the Ranjan dog corresponding to the connection between the superior and transverse articular processes of right L3, L4, and L5 were identified, marked, and localized with 1% lidocaine. Subsequently, a [id number] radiofrequency cannula with a 10- mm active tip was advanced guided by fluoroscopy to each of the``eyes of the Ranjan dog at right L3, L4, and L5. Each site then underwent sensory testing at 50 Hz and 0 to 1 volt and motor testing at 2.5 Hz and 0 to 3 volt with local stimulation, but no radicular symptoms down the legs. Thereafter each sites underwent radiofrequency thermocoagulation at 80 degrees celsius for 90 seconds after injecting 0.5 ml of PF Ropivacaine 1ml, then after the thermocoagulation done , 1 ml of the block solution containing Depo-Medrol 20 mg and 3 ml of Ropivacaine 0.5% was injected at the right L3 , L4 , and L5 , levels after negative aspiration of CSF and blood and with no paresthesias. Cannulas were retracted while injecting lidocaine 1% until the needle is out. The same procedure was repeated at the level of Left L3, L4, and L5 levels. At the end of the procedure, the skin was cleansed and bandages were applied. COMPLICATIONS: No acute complications. DISPOSITION / PLANS: The patient was placed in a supine position and transferred to the recovery area in a stable condition for observation and was discharged from the recovery room after meeting discharge criteria. Home discharge instructions given to the patient by the staff. The patient was reexamined prior to discharge. The patient will schedule a follow up in the clinic in 2-4 weeks.
[2019-11-24] MEDS ORDERED: IV FLUID CONTINUATION 500 ML IV ONE (07:34)
[2019-11-24 07:54] VITALS: BP 113/73; PULSE 80
--- NOTE | 2019-11-24 09:22 | FL ---
EXAMINATION TYPE: FL guided pain mgmt statistic DATE OF EXAM: 11/24/2019 CLINICAL HISTORY: Low back pain. TECHNIQUE: Fluoroscopy. COMPARISON: None. FINDINGS: Fluoroscopic guidance was provided during pain relief procedure performed by Dr. Gimenez . A total of 0.22 minutes of fluoroscopic time was utilized during the procedure and 6 spot images a re acquired. Images acquired shows needle localization at multiple levels in the lumbar spine. IMPRESSION: As Above.
== END 2019-11-24 08:00 | disposition home or self-care (01) ==
LOC: ORPAIN 06:16
PROVIDERS: ATTEND Specialist
DX: M47.816 Spondylosis without myelopathy or radiculopathy, lumbar region (principal); M51.36 Other intervertebral disc degeneration, lumbar region
CPT/HCPCS: 64635; 64636; J2250; J1030; J3010; J2795; 99152; 99153

== ENCOUNTER → 2019-12-21 | Outpatient (CLI) | payer BC ==
[2019-12-21 14:51] VITALS: BP 131/72; PULSE 90; RESP 20; TEMP 98.3
--- NOTE | 2019-12-21 15:23 | P.PAINPG ---
Subjective Progress Note Date: 12/21/19 This is 59 years old female with a chronic history of severe low back pain, she is diagnosed with lumbar spondylosis with lumbar facet arthropathy and lumbar degenerative disc disease and sacroiliitis, more than 3 years ago, patient was seen at [facility] pain clinic and we have done RFA of the medial branch lumbar area in the past which helped her low back pain significantly and the pain relief lasted for 6 months. she is s/p L3, L4, L5 bilateral RFA. Vision reports that the bilateral lumbar radiofrequency ablations did not help unfortunately. Pain is located in the low back over the L4 to L5 region radiating outwardly towards the flanks. Pain is described as dull and aching w ith occasional sharp and stabbing in nature. She denies any radiation into the lower extremities. Does note there is occasional pain over the buttocks and sitting and rising from a seated position do exacerbate the pain. she denies any motor or sensory deficits she denies any fever or night sweats she has no change in the bowel movements or urination, she is currently on [place] 7.5/325 twice a day and Motrin 800 mg every 8 hours when necessary and she is getting prescriptions refilled from her primary care, and she denies any side effect of the medication. Physical Exam REVIEW OF ORGAN SYSTEMS: CONSTITUTIONAL: No fevers or chills. No recent weight loss. EYES: denies troubles with vision. HEENT: No difficulties with hearing. No nosebleeds. No difficulty swallowing. RESPIRATORY: Denies any troubles with breathing or dyspnea on exertion. CARDIOVASCULAR: Denies any chest pain, palpitations, or recent heart attacks. GASTROINTESTINAL: Denies fatty food intolerance. Has change in bowel habits and gas bloat. GENITOURINARY: Denies any blood in urine. Has increased urinary frequency. NEUROLOGICAL: no numbness and tingling along the distal extremities. No seizure disorders or headaches. MUSCULOSKELETAL: Has sever low back pain. SKIN:no skin cancer. No rash. PSYCHIATRIC: Denies current depression or suicidal thoughts. ENDOCRINE: Denies current thyroid disorders. Denies any blood sugar glucose intolerance. HEME/LYMPHATIC: Denies any lumps and bumps around the neck. History of deep venous thrombosis. ALLERGY/IMMUNOLOGY: No immunoglobulin therapy. No immune deficiencies. BREAST: Denies current breast lumps, pain or nipple discharge. Physical Examinations : Constitutiona : Cooperative , not in acute distress . HEENT : nech : supple , no Lymphadenopathy , normal thyroid size . : eyes no ptosis , no icterus, no photophobia . : ENT normal of hearing , normal oropharynx , no Thrush . Respiratory : Chest clear to auscultations Bilaterally , no wheezing , no Rhonchi . Cardiovascula : regular rate and rhythem , S1 , S2 , no S3 , no S4. Gastrointestina : abdomen soft no tenderness , bowel sounds , no organomegally . Genitourinary : Defferred . neurologic : Cranial nerve II to XII intact , no focal neurological deffecit . psychatric : alert , oriented X 3 , appropriate affect , intact judgment and insight . Lymphatic : no Lymphadenopathy . musculoskeltal : Lumber spine motor stregnth lower extremities ,thigh and legs 5/5 Right side , 5/5 Left side deep tendon reflexes : normal Knee Jerk , normal ankle Jerk lumber facet Loading Test= positive Right , positive Left Range of motion of the lumbar spine Flexion 30 degrees, extension 10 degrees Results Comments: MRI of the lumbar spine done in 2010= multilevel lumbar degenerative disc disease and lumbar spondylosis and facet joint hypertrophy Assessment and Plan Plan: Assessment and plan=1-lumbar spondylosis with lumbar facet arthropathy. 2-lumbar degenerative disc disease. Genitourinary Prince did not work, we will proceed with medication management. We'll prescribe Mobic 15 mg once a day as well as a TENS unit. There is a thought of repeating imaging, however her symptoms are the same and she does not have any new radicular symptoms therefore I would not proceed with any other form of intervention. I did discuss the possibility of doing an SI joint injection in the future, if Mobic and her TENS unit do not help we can move on to SI joint injection Smoking Status Never smoker Pain Intensity [Lower Back] 4 Hx Alcohol Use (MH) Yes: social PQRS Measure Charge Sheet Measure #226: Tobacco Use: Screen & Cessation Intervention: Pt not a tobacco user Measure #111: Pneumonia Vaccination: Pneumococcal vaccine NOT administered or previously given Measure #47: Advance Care Plan: Advance care planning discussed & documented, pt chose/unable to give Measure #412: Opioid Treatment Agreement: No documentation of signed opioid treatment agreement Measure #408: Opioid Therapy Follow-up Evaluation: Patient had NO f/u eval minimum every 3 months during opioid therapy Measure #131: Pain Assessment & Follow-up: Pain positive & plan documented Measure #431: Unhealthy Alcohol Use Preventative Care & Scrn: Patient not identified as an unhealthy alcohol user PQRS Narrative: Smoking Status Never smoker Pain Intensity [Back] 3 Scale Used Numeric (1 - 10) Hx Alcohol Use (MH) Yes: social PQRS Measure Charge Sheet PQRS Narrative: Smoking Status Never smoker Pain Intensity [Lower Back] 5 Scale Used Numeric (1 - 10) Hx Alcohol Use (MH) Yes: social Home Medications: Ambulatory Orders HYDROcodone/APAP 7.5-325MG [[place] 7.5-325] 1 tab PO BID PRN 02/09/15 Dapagliflozin Propanediol [Farxiga] 5 mg PO QAM 09/08/18 Ibuprofen [Motrin] 600 mg PO Q8HR PRN 09/08/18 Losartan Potassium 50 mg PO DAILY 09/08/18 sitaGLIPtin [Januvia] 100 mg PO HS 09/08/18 Atorvastatin [Lipitor] 10 mg PO DAILY 09/21/19 Glimepiride [Amaryl] 4 mg PO HS 09/21/19 Pseudoephedrine [Sudafed] 60 mg PO Q4-6H PRN 09/21/19 Controlled Substance Measures - Controlled Substance Measures Is patient prescribed a controlled substance at discharge?: No
== END | disposition home or self-care (01) ==
LOC: PNWHC3 14:33
PROVIDERS: ATTEND Anesthesiology
DX: M51.36 Other intervertebral disc degeneration, lumbar region (principal); M47.816 Spondylosis without myelopathy or radiculopathy, lumbar region; M46.96 Unspecified inflammatory spondylopathy, lumbar region; Z79.891 Long term (current) use of opiate analgesic
CPT/HCPCS: 99211

== ENCOUNTER 2020-02-01 07:45 | Day surgery (SDC) | payer BC ==
[2020-01-31 08:27] VITALS: BMI 31.6
[2020-02-01] MEDS ORDERED: LIDOCAINE 1% (10MG/ML) FOR IV START INTRADERMA ONE (08:07)
[2020-02-01 08:19] VITALS: TEMP 96.9
[2020-02-01 08:19] LABS: Glucose,Whole Blood 167 mg/dL (75-99)
[2020-02-01] MEDS ORDERED: PROPOFOL 10 MG/ML 20 ML VIAL IV ONE (08:38)
--- NOTE | 2020-02-01 08:54 | P.PCN ---
Date of Procedure: 02/01/20 Procedure(s) Performed: BRIEF HISTORY: Patient is a -59year-old pleasant female scheduled for an elective colonoscopy as a part of screening for colorectal neoplasia. She does have family history of colon cancer diagnosed in her sister sister at age 55. PROCEDURE PERFORMED: Colonoscopy. PREOPERATIVE DIAGNOSIS: Screening for colon cancer/family history of colon cancer IV sedation per Anesthesia. PROCEDURE: After informed consent was obtained, the patient, was brought into the endoscopy unit. IV sedation was administered by Anesthesia under continuous monitoring. Digital rectal examination was normal. Initially the Olympus CF-160 flexible video colonoscope was then inserted in the rectum, gradually advanced into the cecum without any difficulty. Careful examination was performed as the scope was gradually being withdrawn. Ileocecal valve and the appendiceal orifice were visualized and appeared normal. Prep was excellent. Mucosa of the cecum, ascending colon, transverse colon, descending colon, sigmoid colon, and rectum appeared normal. Retroflexion was performed in the rectum and no lesions were seen. The patient tolerated the procedure well. IMPRESSION: Normal-appearing colon from rectum to cecwith no evidence of colitis or colorectal neoplasia Scattered sigmoid diverticulosis. RECOMMENDATIONS: Findings of this examination were discussed with the patient as well as a family. He was advised to have a repeat screening colonoscopy in 5 years because of the family history of colon cancer
[2020-02-01 09:18] VITALS: BP 114/75; PULSE 74; RESP 16
== END 2020-02-01 09:33 | disposition home or self-care (01) ==
LOC: ORWHC2ENDO 07:45
PROVIDERS: ATTEND Internal Medicine Gastroenterology
DX: Z12.11 Encounter for screening for malignant neoplasm of colon (principal); K57.30 Diverticulosis of large intestine without perforation or abscess without bleeding; I10 Essential (primary) hypertension; E11.9 Type 2 diabetes mellitus without complications; E78.5 Hyperlipidemia, unspecified; G47.33 Obstructive sleep apnea (adult) (pediatric); G43.909 Migraine, unspecified, not intractable, without status migrainosus; Z79.899 Other long term (current) drug therapy; Z79.84 Long term (current) use of oral hypoglycemic drugs; Z79.1 Long term (current) use of non-steroidal anti-inflammatories (NSAID); Z79.891 Long term (current) use of opiate analgesic; Z90.49 Acquired absence of other specified parts of digestive tract; Z90.710 Acquired absence of both cervix and uterus; Z98.890 Other specified postprocedural states; Z80.0 Family history of malignant neoplasm of digestive organs
CPT/HCPCS: G0105; J2704; 45378

== ENCOUNTER → 2020-02-15 | Outpatient (CLI) | payer BC ==
[2020-02-15 08:50] VITALS: BP 154/81; PULSE 97; RESP 20; TEMP 97.9
--- NOTE | 2020-02-15 09:06 | P.PAINPG ---
Subjective Progress Note Date: 02/14/20 This is 59 years old female with a chronic history of severe low back pain, she is diagnosed with lumbar spondylosis with lumbar facet arthropathy and lumbar degenerative disc disease and sacroiliitis, more than 3 years ago, patient was seen at [facility] pain clinic and we have done RFA of the medial branch lumbar area in the past which helped her low back pain significantly and the pain relief lasted for 6 months. she had L3, L4, L5 bilateral RFA on 10/2019 which unfortunately did not help. At our last visit I prescribed her Mobic and a TENS unit. Mobic helped her sleep for the first couple of days, and she has forgot to get her TENS unit. Pain is located over the lateral aspect of her hip and occasionally in her buttock. Pain is described as dull and aching with occasional sharp and stabbing component. No radiation into the lower extremities. Does not that she has difficulty laying on her left side due to the pain. Sitting is slightly uncomfortable but overall it is okay. she denies any motor or sensory deficits she denies any fever or night sweats she has no change in the bowel movements or urination, she is currently on [place] 7.5/325 twice a day and Motrin 800 mg every 8 hours when necessary and she is getting prescriptions refilled from her primary care, and she denies any side effect of the medication. Physical Exam REVIEW OF ORGAN SYSTEMS: CONSTITUTIONAL: No fevers or chills. No recent weight loss. EYES: denies troubles with vision. HEENT: No difficulties with hearing. No nosebleeds. No difficulty swallowing. RESPIRATORY: Denies any troubles with breathing or dyspnea on exertion. CARDIOVASCULAR: Denies any chest pain, palpitations, or recent heart attacks. GASTROINTESTINAL: Denies fatty food intolerance. Has change in bowel habits and gas bloat. GENITOURINARY: Denies any blood in urine. Has increased urinary frequency. NEUROLOGICAL: no numbness and tingling along the distal extremities. No seizure disorders or headaches. MUSCULOSKELETAL: Has sever low back pain. SKIN:no skin cancer. No rash. PSYCHIATRIC: Denies current depression or suicidal thoughts. ENDOCRINE: Denies current thyroid disorders. Denies any blood sugar glucose intolerance. HEME/LYMPHATIC: Denies any lumps and bumps around the neck. History of deep venous thrombosis. ALLERGY/IMMUNOLOGY: No immunoglobulin therapy. No immune deficiencies. BREAST: Denies current breast lumps, pain or nipple discharge. Physical Examinations : Constitutiona : Cooperative , not in acute distress . HEENT : nech : supple , no Lymphadenopathy , normal thyroid size . : eyes no ptosis , no icterus, no photophobia . : ENT normal of hearing , normal oropharynx , no Thrush . Respiratory : Chest clear to auscultations Bilaterally , no wheezing , no Rhonchi . Cardiovascula : regular rate and rhythem , S1 , S2 , no S3 , no S4. Gastrointestina : abdomen soft no tenderness , bowel sounds , no organomegally . Genitourinary : Defferred . neurologic : Cranial nerve II to XII intact , no focal neurological deffecit . psychatric : alert , oriented X 3 , appropriate affect , intact judgment and insight . Lymphatic : no Lymphadenopathy . musculoskeltal : Lumber spine motor stregnth lower extremities ,thigh and legs 5/5 Right side , 5/5 Left side deep tendon reflexes : normal Knee Jerk , normal ankle Jerk lumber facet Loading Test= positive Right , positive Left Range of motion of the lumbar spine Flexion 30 degrees, extension 10 degrees TTP over right greater trochanter, JOSE DANIEL test positive on right side Results Comments: MRI of the lumbar spine done in 2010= multilevel lumbar degenerative disc disease and lumbar spondylosis and facet joint hypertrophy Assessment and Plan Plan: Assessment and plan=1-lumbar spondylosis with lumbar facet arthropathy. 2-lumbar degenerative disc disease. 59 yo female with past medical history of lumbar spondylosis and facet art hropathy. Had successful medial branch blocks of bilateral L3 L4-L5 however RFA was unsuccessful. last visit I prescribed Mobic in a TENS unit for her, she mentioned Mobic worked for about 3 days however she is having difficulty sleeping and she forgot to get her TENS unit. Her pain is located mostly over her right trochanter so we will do right GT bursa injection, I did not refill her Mobic as she says it does not help. It is prescribe her Flexeril 10 mg twice a day as this can help with her pain and sleep. We can consider SI joint injection the future the GT bursa injection does not help. She is getting [place] 7.5 twice a day from her primary care provider. Smoking Status Never smoker Pain Intensity [Lower Back] 4 Hx Alcohol Use (MH) Yes: social PQRS Measure Charge Sheet Measure #226: Tobacco Use: Screen & Cessation Intervention: Pt not a tobacco user Measure #111: Pneumonia Vaccination: Pneumococcal vaccine NOT administered or previously given Measure #47: Advance Care Plan: Advance care planning discussed & documented, pt chose/unable to give Measure #412: Opioid Treatment Agreement: No documentation of signed opioid treatment agreement Measure #408: Opioid Therapy Follow-up Evaluation: Patient had NO f/u eval minimum every 3 months during opioid therapy Measure #131: Pain Assessment & Follow-up: Pain positive & plan documented Measure #431: Unhealthy Alcohol Use Preventative Care & Scrn: Patient not identified as an unhealthy alcohol user PQRS Narrative: Smoking Status Never smoker Pain Intensity [Back] 3 Scale Used Numeric (1 - 10) Hx Alcohol Use (MH) Yes: social PQRS Measure Charge Sheet PQRS Narrative: Smoking Status Never smoker Pain Intensity [Lower Back] 5 Scale Used Numeric (1 - 10) Hx Alcohol Use (MH) Yes: social Controlled Substance Measures - Controlled Substance Measures Is patient prescribed a controlled substance at discharge?: No PQRS Measure Charge Sheet PQRS Narrative: Smoking Status Never smoker Pain Intensity [Lower Back] 0 Scale Used Numeric (1 - 10) Hx Alcohol Use (MH) Yes: social Home Medications: Ambulatory Orders HYDROcodone/APAP 7.5-325MG [[place] 7.5-325] 1 tab PO BID PRN 02/09/15 Dapagliflozin Propanediol [Farxiga] 5 mg PO QAM 09/08/18 Losartan Potassium 50 mg PO DAILY 09/08/18 sitaGLIPtin [Januvia] 100 mg PO HS 09/08/18 Atorvastatin [Lipitor] 10 mg PO DAILY 09/21/19 Glimepiride [Amaryl] 4 mg PO HS 09/21/19 Meloxicam 15 mg PO HS 01/31/20 Cyclobenzaprine [Flexeril] 10 mg PO BID 30 Days #60 tab 02/15/20 Controlled Substance Measures - Controlled Substance Measures Is patient prescribed a controlled substance at discharge?: No
== END | disposition home or self-care (01) ==
LOC: PNWHC3 08:42
PROVIDERS: ATTEND Anesthesiology
DX: M51.36 Other intervertebral disc degeneration, lumbar region (principal); M47.816 Spondylosis without myelopathy or radiculopathy, lumbar region; Z79.891 Long term (current) use of opiate analgesic; Z79.899 Other long term (current) drug therapy
CPT/HCPCS: 99211

== ENCOUNTER → 2020-03-13 | Day surgery (SDC) | payer BC ==
[2020-03-09 14:07] VITALS: BMI 31.6
[~2020-03-13] MED LIST changes: +IV FLUID CONTINUATION 800 ML IV ONE; +MIDAZOLAM 2 MG/2 ML VIAL ONE; +ROPIVACAINE 5MG/ML 20ML VIAL ONE; +TRIAMCINOLONE ACETONIDE 40 MG/ML 1 ML VIAL ONE; +fentaNYL (PF) 50 MCG/ML 2 ML AMP ONE
[2020-03-13 08:19] VITALS: TEMP 97.2
[2020-03-13 08:34] LABS: Glucose,Whole Blood 166 mg/dL (75-99)
--- NOTE | 2020-03-13 08:37 | P.PCN ---
Date of Procedure: 03/13/20 Surgeon: Jaime Schmid Pathology: none sent Condition: stable Disposition: PACU Description of Procedure: Pre OP diagnoses= left greater trochanteric bursitis . Postoperative diagnosis= left greater trochanteric bursitis. Operation= left trochanteric bursa steroid injection under fluoroscopy guidance. Anesthesia= IV sedation with Versed , fentanyl and local infiltration with lidocaine 1% 2 mL . Complications= none . Risks and benefits of the procedure including but not limited to risk of infection and bleeding and not complete pain relief and ALLERGIC reaction to medication discussed with the patient and the alternative also discussed with the patient and she agreed with proceding .Patient was taken to the operating room placed in prone position , standard monitors applied , the hip area was prepped with chlorhexidine , and under sterile technique using 25-gauge needle for skin and subcutaneous tissue infiltration and 22-gauge,5 inch, Quincke-type spinal needle advanced slowly under fluoroscopy to contact bone of the greater trochanter. Needle placement was confirmed with AP and lateral view . 9 ML of ropivacaine 0.5% mixed with 40 mg of Kenalog injected after negative aspiration . there was no paresthesia during the injection ,needle removed and a dressing applied.Patient tolerated the procedure well without any complication and she will follow up with the pain clinic in a few weeks P Patient discharged home in stable condition
[2020-03-13 08:45] VITALS: RESP 16
--- NOTE | 2020-03-13 08:53 | FL ---
EXAMINATION TYPE: FL guided pain mgmt statistic DATE OF EXAM: 03/13/2020 HISTORY: Fluoroscopy time 6 seconds of fluoroscopy provided. IMPRESSION: 1. Fluoroscopy time.
[2020-03-13 08:58] VITALS: BP 118/81; PULSE 83
== END ==
LOC: ORPAIN 07:58
PROVIDERS: ATTEND Anesthesiology
DX: M70.62 Trochanteric bursitis, left hip (principal); I10 Essential (primary) hypertension; E11.9 Type 2 diabetes mellitus without complications; Z90.710 Acquired absence of both cervix and uterus
CPT/HCPCS: 20610; J2250; J3301; J3010; J2795

== ENCOUNTER → 2020-04-18 | Outpatient (CLI) | payer BC ==
[2020-04-18 08:17] VITALS: BP 127/71; PULSE 108; RESP 16; TEMP 98.1
--- NOTE | 2020-04-18 08:37 | P.PN ---
Subjective Progress Note Date: 04/18/20 This is follow-up visit for this 59 years old female with a chronic history of severe low back pain, she is diagnosed with lumbar degenerative disc disease and lumbar spondylosis with lumbar facet arthropathy, left trochanteric bursitis, previously would have done RFA of the medial branch lumbar area, a lumbar epidural steroid injection, currently she is complaining of severe low back pain and also left hip pain, she is increased with any activity she denies any fever or night sweats which denies any change in the bowel movement or urination, denies any motor or sensory deficit ,she is able to ambulate without difficulty, she continued to use [place] when necessary and Flexeril 10 mg twice a day Objective - Vital Signs Vital signs: Vital Signs Temp 98.1 F 04/18/20 08:12 Pulse 108 H 04/18/20 08:12 Resp 16 04/18/20 08:12 BP 127/71 04/18/20 08:12 Pulse Ox 98 04/18/20 08:12 - Exam Physical Examinations : -Constitutiona : Cooperative , not in acute distress . -HEENT : nech : supple , no Lymphadenopathy , normal thyroid size . : eyes : no ptosis , no icterus, no photophobia . - neurologic : Cranial nerve II to XII intact , no focal neurological deffecit . -psychatric : alert , oriented X 3 , appropriate affect , intact judgment and insight . -Lymphatic : no Lymphadenopathy . - musculoskeltal : Lumber spine moter stegnth lower extremities ,thigh and legs 5/5 Right side , 5/5 Left side deep tendon reflexes : normal Knee Jerk , normal ankle Jerk lumber facet Loading Test =positive Right , posiutive Left Range of motion of the lumbar spine Flexion 30 degrees, extension 10 degrees strait leg raising test = positive at 45 degree Fabere test= positive Right , and positive LT . mild tenderness over the Sacroiliac joint on the Right , and Left sides Severe tenderness over the left trochanteric bursa . Assessment and Plan Plan: Assessment and plan= 1- lumbar degenerative disc disease .2- lumbar spondylosis with lumbar facet arthropathy . 3-left trochanteric bursitis Patient denies any side effects of the current pain medication and she is getting prescription refills from her primary care Diagnoses, prognosis, treatment options, including but not limited to physical therapy, medication management, interventional therapies, and surgery, were discussed with the patient All the questions answered Medication managements= patient will be given prescription refills for Flexeril 10 mg twice a day dispense 60 with 1 refill She will continue to get prescription refill for Makanda from her primary care Interventions= junction could benefit from lumbar epidural steroid injection at L4 5, and she could benefit from a left trochanteric bursal steroid injection under fluoroscopy guidance - PQRS measures = - Patient's medications are documented in the chart. -Tobacco use is positive ,and counseling.Given. -Patient's has not received pneumococcal vaccine. -Advanced care planning discussed, patient not eligible. -Opiate contract not signed. -Pain positive and follow-up visit/procedure is scheduled. -Patient's blood pressure measured [ 127/71 ] , and documented in the record ,and patient will follow up with the primary care. -Patient's weight was measured and body mass index [ 30.6 ] above the normal limits and counseling was done. and patient instructed to follow-up with the primary care physician. -Patient was not identified as an unhealthy alcohol user , Time with Patient: Less than 30
== END | disposition home or self-care (01) ==
LOC: PNWHC3 07:54
PROVIDERS: ATTEND Specialist
DX: M51.36 Other intervertebral disc degeneration, lumbar region (principal); M47.816 Spondylosis without myelopathy or radiculopathy, lumbar region; M70.62 Trochanteric bursitis, left hip
CPT/HCPCS: 99211

== ENCOUNTER 2020-05-08 06:36 | Day surgery (SDC) | payer BC ==
[2020-05-07 12:34] VITALS: BMI 30.4
[~2020-05-08 06:36] MED LIST changes: -IV FLUID CONTINUATION 800 ML IV ONE; -MIDAZOLAM 2 MG/2 ML VIAL ONE; -ROPIVACAINE 5MG/ML 20ML VIAL ONE; -TRIAMCINOLONE ACETONIDE 40 MG/ML 1 ML VIAL ONE; -fentaNYL (PF) 50 MCG/ML 2 ML AMP ONE
[2020-05-08 07:15] LABS: Glucose,Whole Blood 134 mg/dL (75-99)
[2020-05-08] MEDS ORDERED: ONDANSETRON 4 MG/2 ML VIAL ONE (07:15)
[2020-05-08 07:18] VITALS: TEMP 97.7
[2020-05-08] MEDS ORDERED: methylPREDNISolone ACETATE 40 MG/ML 1 ML VIAL ONE (07:30)
[2020-05-08] MEDS ORDERED: ROPIVACAINE 5MG/ML 20ML VIAL ONE (07:30)
[2020-05-08] MEDS ORDERED: MIDAZOLAM 2 MG/2 ML VIAL ONE (07:30)
[2020-05-08] MEDS ORDERED: IOPAMIDOL M200 10 ML VIAL ONE (07:30)
[2020-05-08] MEDS ORDERED: fentaNYL (PF) 50 MCG/ML 2 ML AMP ONE (07:30)
--- NOTE | 2020-05-08 07:46 | P.PCN ---
Date of Procedure: 05/08/20 Procedure(s) Performed: PREOPERATIVE DIAGNOSIS: 1- Lumbar Degenerative Disc Diseases 2-Lumbar spondylosis with Facet arthropathy without myelopathy 3-left trochanteric bursitis POSTOPERATIVE DIAGNOSIS: Same as preop diagnosis. PROCEDURE 1. Lumbar epidural steroid injection under fluoroscopic guidance at the L4-5 level. (Fluoroscopy imaging was available in radiology department) 2. Lumbar epidurogram. 3-left trochanteric bursa steroid injections under fluoroscopy guidance. ANESTHESIA: Local with 1% lidocaine 3 ml and , moderate sedation with intravenous Versed 2 mg ,and fentanyle 100 Mcg EBL: Minimal PROCEDURE INDICATION: The patient with low back pain and radiculitis symptoms unresponsive to conservative treatment. Fluoroscopy was used to optimize visualization of the needle placement and to maximize safety. PROCEDURE DESCRIPTION / TECHNIQUE: The patient was seen and identified in the preoperative area. Risks, benefits, complications including but not limited to infections ,bleeding ,allergic reaction to the medications ,nerve damage and not complete pain releife , and alternatives were discussed with the patient. The patient agreed to proceed with the procedure and signed the consent. IV was started, and vital signs were stable. Patient was taken to the OR and time out was completed. The patient was placed in the prone position on procedure table and a pillow was placed under the abdomen to reduce lumbar lordosis. The lumbosacral area was prepped and draped in the usual sterile fashion.ere closely monitored during the procedure. Conscious sedation was used during the procedure to decrease patients anxiety. Vital signs was monitered during the entire procedure. Using anterior-posterior fluoroscopy, the L4-5 interlaminar space was identified and the skin over this site was marked and then infiltrated with 1% lidocaine subcutaneously. Subsequently, a 20-gauge Tuohy epidural needle was inserted and advanced toward the epidural space using the ``Loss of resistance technique and guided by AP and lateral fluoroscopy. The correct needle position in the epidural space was verified with the injection of 2 mL of the water soluble contrast dye Isovue 200 contrast and observing an excellent epidurogram with the epidural spread of the dye, after negative aspiration for blood and CSF and in the absence of paresthesias. Again after negative aspiration, a 6 ml mixture containing 40 mg of Depo-medrol , and 2 ml of preservative free Normal Saline, and 2 ml of preservative free lidocaine 1% solution was injected and a washout of epidurogram was seen. Needle was withdrawn intact. After that the left trochanteric bursa steroid injection done in a sterile technique, local infiltration of the skin and subcutaneous tissue with ropivacaine 0.5% 3 mL, for skin and subcu infiltration, and then 20-gauge Touhy was advanced slowly under fluoroscopy at the left trochanteric bursa area, placement confirmed with AP and lateral view, and after negative aspiration ,then 5 ml ropivacaine 0.5%, mixed with 20 mg of Depo-Medrol, injected after negative aspiration patient tolerated the procedure well without any complication COMPLICATIONS: None DISPOSITION / PLANS: The patient was placed in a supine position and transferred to the recovery area in a stable condition for observation. There was no evidence of lower extremity motor or sensory deficit after the procedure. Patient was discharged from the recovery room after meeting discharge criteria. Home discharge instructions were given to the patient by the staff. The patient was reexamined prior to discharge. The patient will schedule a follow up in the clinic in 2-4 weeks.
[2020-05-08] MEDS ORDERED: IV FLUID CONTINUATION 700 ML IV ONE (07:49)
[2020-05-08 07:57] VITALS: RESP 16
[2020-05-08 08:21] VITALS: BP 124/75; PULSE 99
--- NOTE | 2020-05-08 09:44 | FL ---
Fluoroscopy INDICATION: Pain FINDINGS: Fluoroscopy time: 4 seconds. Images obtained: 2. IMPRESSIONS: 1. Documentation of fluoroscopy.
== END 2020-05-08 08:24 | disposition home or self-care (01) ==
LOC: ORPAIN 06:36
PROVIDERS: ATTEND Specialist
DX: M51.16 Intervertebral disc disorders with radiculopathy, lumbar region (principal); M47.26 Other spondylosis with radiculopathy, lumbar region; M70.62 Trochanteric bursitis, left hip; E11.9 Type 2 diabetes mellitus without complications; Z90.710 Acquired absence of both cervix and uterus
CPT/HCPCS: 62323; 20610; J2250; J1030; J3010; Q9966; J2795

== ENCOUNTER 2020-05-29 06:15 | Day surgery (SDC) | payer BC ==
[2020-05-24 15:48] VITALS: BMI 30.2
[2020-05-29 06:46] VITALS: RESP 16; TEMP 97.4
[2020-05-29 06:53] LABS: Glucose,Whole Blood 152 mg/dL (75-99)
[2020-05-29] MEDS ORDERED: LIDOCAINE 1% (10MG/ML) FOR IV START INTRADERMA ONE (06:53)
[2020-05-29] MEDS ORDERED: methylPREDNISolone ACETATE 40 MG/ML 1 ML VIAL ONE (06:54)
[2020-05-29] MEDS ORDERED: IOPAMIDOL M200 10 ML VIAL ONE (06:54)
[2020-05-29] MEDS ORDERED: ROPIVACAINE 5MG/ML 20ML VIAL ONE (06:54)
[2020-05-29] MEDS ORDERED: fentaNYL (PF) 50 MCG/ML 2 ML AMP ONE (06:54)
[2020-05-29] MEDS ORDERED: MIDAZOLAM 2 MG/2 ML VIAL ONE (06:54)
--- NOTE | 2020-05-29 07:08 | P.PCN ---
Date of Procedure: 05/29/20 Procedure(s) Performed: PREOPERATIVE DIAGNOSIS: 1- Lumbar Degenerative Disc Diseases 2-Lumbar spondylosis with Facet arthropathy without myelopathy 3-left trochanteric bursitis POSTOPERATIVE DIAGNOSIS: Same as preop diagnosis. PROCEDURE 1. Lumbar epidural steroid injection under fluoroscopic guidance at the L4-5 level. (Fluoroscopy imaging was available in radiology department) 2. Lumbar epidurogram. 3-left trochanteric bursa steroid injections under fluoroscopy guidance. ANESTHESIA: Local with 1% lidocaine 3 ml and , moderate sedation with intravenous Versed 2 mg ,and fentanyle 100 Mcg EBL: Minimal PROCEDURE INDICATION: The patient with low back pain and radiculitis symptoms unresponsive to conservative treatment. Fluoroscopy was used to optimize visualization of the needle placement and to maximize safety. PROCEDURE DESCRIPTION / TECHNIQUE: The patient was seen and identified in the preoperative area. Risks, benefits, complications including but not limited to infections ,bleeding ,allergic reaction to the medications ,nerve damage and not complete pain releife , and alternatives were discussed with the patient. The patient agreed to proceed with the procedure and signed the consent. IV was started, and vital signs were stable. Patient was taken to the OR and time out was completed. The patient was placed in the prone position on procedure table and a pillow was placed under the abdomen to reduce lumbar lordosis. The lumbosacral area was prepped and draped in the usual sterile fashion.ere closely monitored during the procedure. Conscious sedation was used during the procedure to decrease patients anxiety. Vital signs was monitered during the entire procedure. Using anterior-posterior fluoroscopy, the L4-5 interlaminar space was identified and the skin over this site was marked and then infiltrated with 1% lidocaine subcutaneously. Subsequently, a 20-gauge Tuohy epidural needle was inserted and advanced toward the epidural space using the ``Loss of resistance technique and guided by AP and lateral fluoroscopy. The correct needle position in the epidural space was verified with the injection of 2 mL of the water soluble contrast dye Isovue 200 contrast and observing an excellent epidurogram with the epidural spread of the dye, after negative aspiration for blood and CSF and in the absence of paresthesias. Again after negative aspiration, a 6 ml mixture containing 40 mg of Depo-medrol , and 2 ml of preservative free Normal Saline, and 2 ml of preservative free lidocaine 1% solution was injected and a washout of epidurogram was seen. Needle was withdrawn intact. After that the left trochanteric bursa steroid injection done in a sterile technique, local infiltration of the skin and subcutaneous tissue with ropivacaine 0.5% 3 mL, for skin and subcu infiltration, and then 20-gauge Touhy was advanced slowly under fluoroscopy at the left trochanteric bursa area, placement confirmed with AP and lateral view, and after negative aspiration ,then 5 ml ropivacaine 0.5%, mixed with 20 mg of Depo-Medrol, injected after negative aspiration patient tolerated the procedure well without any complication COMPLICATIONS: None DISPOSITION / PLANS: The patient was placed in a supine position and transferred to the recovery area in a stable condition for observation. There was no evidence of lower extremity motor or sensory deficit after the procedure. Patient was discharged from the recovery room after meeting discharge criteria. Home discharge instructions were given to the patient by the staff. The patient was reexamined prior to discharge. The patient will schedule a follow up in the clinic in 2-4 weeks.
[2020-05-29 07:31] VITALS: BP 106/77; PULSE 88
[2020-05-29] MEDS ORDERED: IV FLUID CONTINUATION 1,000 ML IV ONE (07:33)
--- NOTE | 2020-05-29 09:38 | FL ---
Fluoroscopy HISTORY: Pain 2 seconds fluoroscopy time supplied to the referring clinician. 2 intraoperative C-arm images docume nt the procedure. See dictated report from anesthesia.
== END 2020-05-29 07:47 | disposition home or self-care (01) ==
LOC: ORPAIN 06:15
PROVIDERS: ATTEND Specialist
DX: M47.26 Other spondylosis with radiculopathy, lumbar region (principal); M51.16 Intervertebral disc disorders with radiculopathy, lumbar region; M70.62 Trochanteric bursitis, left hip; E11.9 Type 2 diabetes mellitus without complications
CPT/HCPCS: 62323; 20610; J2250; J1030; J3010; Q9966; J2795

== ENCOUNTER → 2020-06-20 | Outpatient (CLI) | payer BC ==
[2020-06-20 10:38] VITALS: BP 129/80; PULSE 103; RESP 18; TEMP 98.1
--- NOTE | 2020-06-20 10:48 | P.PN ---
Subjective Progress Note Date: 06/20/20 This is follow-up visit for this 59 years old female with a chronic history of severe low back pain, she is diagnosed with lumbar degenerative disc disease, and lumbar spondylosis with lumbar facet arthropathy, left trochanteric bursitis, previously would have done RFA of the medial branch lumbar area, a lumbar epidural steroid injection, she is complaining of severe low back pain and also left hip pain, she is increased with any activity she denies any fever or night sweats which denies any change in the bowel movement or urination, denies any motor or sensory deficit ,she is able to ambulate without difficulty, she continued to use [place] when necessary and Flexeril 10 mg twice a day Physical Examinations : -Constitutiona : Cooperative , not in acute distress . -HEENT : nech : supple , no Lymphadenopathy , normal thyroid size . : eyes : no ptosis , no icterus, no photophobia . - neurologic : Cranial nerve II to XII intact , no focal neurological deffecit . -psychatric : alert , oriented X 3 , appropriate affect , intact judgment and insight . -Lymphatic : no Lymphadenopathy . - musculoskeltal : Lumber spine moter stegnth lower extremities ,thigh and legs 5/5 Right side , 5/5 Left side deep tendon reflexes : normal Knee Jerk , normal ankle Jerk lumber facet Loading Test =positive Right , posiutive Left Range of motion of the lumbar spine Flexion 30 degrees, extension 10 degrees strait leg raising test = positive at 45 degree Fabere test= positive Right , and positive LT . mild tenderness over the Sacroiliac joint on the Right , and Left sides tenderness over the left trochanteric bursa . Assessment and plan= 1- lumbar degenerative disc disease .2- lumbar spondylosis with lumbar facet arthropathy . 3-left trochanteric bursitis Patient denies any side effects of the current pain medication and she is getting prescription refills from her primary care Diagnoses, prognosis, treatment options, including but not limited to physical therapy, medication management, interventional therapies, and surgery, were discussed with the patient All the questions answered Interventions= patient continued to have pain after RFA of the medial branch lumbar area Patient continued to have severe pain after lumbar epidural steroid injection and left trochanteric bursa I would order MRI of the lumbar spine for evaluation and patient will follow up with for evaluation - PQRS measures = - Patient's medications are documented in the chart. -Tobacco use is positive ,and counseling.Given. -Patient's has not received pneumococcal vaccine. -Advanced care planning discussed, patient not eligible. -Opiate contract not signed. -Pain positive and follow-up visit/procedure is scheduled. -Patient's blood pressure measured [ 129/80 ] , and documented in the record ,and patient will follow up with the primary care. -Patient's weight was measured and body mass index [ 30.6 ] above the normal limits and counseling was done. and patient instructed to follow-up with the primary care physician. -Patient was not identified as an unhealthy alcohol user Objective - Vital Signs Vital signs: Vital Signs Temp 98.1 F 06/20/20 10:28 Pulse 103 H 06/20/20 10:28 Resp 18 06/20/20 10:28 BP 129/80 06/20/20 10:28 Pulse Ox 91 L 06/20/20 10:28 Intake & Output 06/19/20 06/20/20 06/20/20 18:59 06:59 18:59 Weight 82.554 kg
== END ==
LOC: PNWHC3 10:05
PROVIDERS: ATTEND Specialist
DX: M47.816 Spondylosis without myelopathy or radiculopathy, lumbar region (principal); M70.62 Trochanteric bursitis, left hip; M51.36 Other intervertebral disc degeneration, lumbar region
CPT/HCPCS: 99211

== ENCOUNTER → 2020-07-04 | Outpatient (CLI) | payer BC ==
--- NOTE | 2020-07-05 04:29 | MR ---
EXAMINATION TYPE: MR lumbar spine wo con DATE OF EXAM: 07/04/2020 COMPARISON: 12/20/2015 HISTORY: 59-year-old female M47.816, Lower back and along the center and eccentrically towards the le ft side, and down along the outer aspect of the left thigh. TECHNIQUE: Multiplanar, multisequence images of the lumbar spine were acquired. FINDINGS: Vertebral body heights are preserved and alignment is maintained. No suspicious bone marrow replacement. Hypertrophic facet arthropathy mid to lower lumbar spine. Some prominent dorsal epidural fat but to l ower lumbar spine impressing on the thecal sac. Superimposed mild to moderate degenerative disc disease mid to lower lumbar spine slightly progressed from 2015. There is disc desiccation and diffuse disc bulging. Small posterior annular fissure at L4 -L5. Conus medullaris is normal. No prevertebral paravertebral soft tissue abnormality. At T12-L1, no canal or foraminal stenosis. At L1-L2, mild bulging disc. Facet degenerative change towards the left. Minimal inferior foraminal n arrowing on the left. No spinal canal stenosis. At L2-L3, mild diffuse disc bulge and some facet arthropathy towards the right. No significant canal or foraminal stenosis. At L3-L4, slightly larger diffuse disc bulge. Hypertrophic facet arthropathy and ligamentum flavum th ickening and progressive dorsal epidural fat accumulation. Changes result in moderate thecal sac comp ression. The thecal sac is narrowed but CSF signal is maintained. Mild left neural foraminal stenosis . At L4-L5, hypertrophic facet arthropathy with ligamentum flavum thickening and progressive dorsal epi dural fat accumulation. Diffuse disc bulge and needle posterior annular fissure. Moderate spinal oren l stenosis with moderate right and mild left neural foraminal stenosis. At L5-S1, mild disc bulge. Hypertrophic facet arthropathy. Changes of results in mild bilateral neuro foraminal stenosis but left lateral disc osteophyte complex may abut the extraforaminal left L5 nerve root, sagittal image 2 and axial images 2 and 3. IMPRESSION: 1. Mild to moderate degenerative disc disease mid to lower lumbar spine along with a posterior annula r fissure at L4-L5. Changes slightly progressed from 2016. 2. Hypertrophic facet arthropathy mid to lower lumbar spine. No malalignment. 3. Progressive ligamentum flavum thickening and dorsal epidural fat accumulation in the mid to lower lumbar spine. Changes result in overall moderate compression of the thecal sac at L3-L4 and L4-L5, in creased from prior. No high-grade canal compromise. 4. Variable mild neuroforaminal stenoses as outlined above, moderate on the right at L4-L5. Left late ral disc osteophyte complex at L5-S1 may abut the extraforaminal left L5 nerve root.
== END | disposition home or self-care (01) ==
LOC: RADMRIMAIN 07:44
PROVIDERS: ATTEND Specialist
DX: M47.816 Spondylosis without myelopathy or radiculopathy, lumbar region (principal); M51.36 Other intervertebral disc degeneration, lumbar region; M99.73 Connective tissue and disc stenosis of intervertebral foramina of lumbar region
CPT/HCPCS: 72148

== ENCOUNTER 2020-08-07 06:27 | Day surgery (SDC) | payer BC ==
[2020-08-03 11:34] VITALS: BMI 30.2
[2020-08-07 07:08] LABS: Glucose,Whole Blood 164 mg/dL (75-99)
[2020-08-07 07:12] VITALS: RESP 16; TEMP 97
[2020-08-07] MEDS ORDERED: LIDOCAINE 1% (10MG/ML) FOR IV START INTRADERMA ONE (07:12)
[2020-08-07] MEDS ORDERED: LACTATED RINGERS 1,000 ML IV ONE (07:12)
[2020-08-07] MEDS ORDERED: DEXAMETHASONE SOD PHOSPHATE 10 MG/ML 1 ML VIAL ONE (07:18)
[2020-08-07] MEDS ORDERED: fentaNYL (PF) 50 MCG/ML 2 ML AMP ONE (07:18)
[2020-08-07] MEDS ORDERED: MIDAZOLAM 2 MG/2 ML VIAL ONE (07:18)
[2020-08-07] MEDS ORDERED: IOPAMIDOL M200 10 ML VIAL ONE (07:18)
[2020-08-07] MEDS: LACTATED RINGERS 1,000 ML IV SCH ×2 (07:37→08:00)
[2020-08-07 07:42] VITALS: PULSE 94
[2020-08-07 07:56] VITALS: BP 107/73
--- NOTE | 2020-08-07 10:08 | FL ---
Fluoroscopy HISTORY: Pain 6 seconds fluoroscopy time supplied to the referring clinician. 2 intraoperative C-arm images docume nt the procedure. See dictated report from anesthesia.
--- NOTE | 2020-08-07 10:38 | P.PCN ---
Date of Procedure: 08/07/20 Description of Procedure: PREOPERATIVE DIAGNOSIS: Lumbar disc herniation, lumbar discrimination, Lumbar radiculopathy. POSTOPERATIVE DIAGNOSIS: Lumbar radiculopathy. PROCEDURE: 1) left-sided L3-L4 Transforaminal epidural steroid injection under fluoroscopic guidance, 2) Epidurogram SURGEON: Chris Hung [employer] SAL[employer] REPRESENTATIVE: None ANESTHESIA: Local , and IV sedation EBL: None. Specimen removed: None Fluoroscopic image: Saved to electronic medical records PROCEDURE INDICATION: The patient with continued lumbar pain with radiculopathy, and intervertebral disc disease without myelopathy that has failed to respond to adequate conservative management. Came here for repeat procedure. PROCEDURE DESCRIPTION: The patient was seen and identified in the preoperative area. Risks, benefits, complications, and alternatives were discussed with the patient. The patient agreed to proceed with the procedure and signed the consent. IV was started, and vital signs were stable. Patient was taken to the OR and time out was completed. The patient was placed in the prone position on procedure table and a pillow was placed under the abdomen to reduce lumbar lordosis. The lumbosacral area was prepped with ChloraPrep 1 and draped in the usual sterile fashion. Critical pause was taken. Vital signs were closely monitored during the procedure. Using 20 degree ipsilateral oblique fluoroscopy, the chin of the Ranjan dog of L3 was identified, and the skin and deeper tissues just below was localized with 1% lidocaine. 22-guage 3.5 -inch spinal needles were used for the procedure. The needle was guided by fluoroscopy just underneath the chin of the Ranjan dog of L3 . Under AP fluoroscopy, the needle was advanced to the 6 o'clock position of the L3 pedicle. After negative aspiration of CSF and blood and with no paresthesias, 1 mL of Isovue-200 contrast dye was injected with good anterior epidural spread and outlining of the L3 nerve root. Then underwent injection of 3 mL of block solution injection after negative aspiration. Block solution contained 10 mg of dexamethasone, 0.5 mL of 1% lidocaine preservative-free with 1.5 mL of normal saline preservative-free. Needle was removed intact, skin was cleansed, and bandages were applied. COMPLICATIONS: None. DISPOSITION : The patient was placed in a supine position and transferred to the recovery area in a stable condition for observation and was discharged from the recovery room after meeting discharge criteria. Home discharge instructions given to the patient by the staff. The patient was reexamined prior to discharge. The patient will schedule follow-up in the clinic in 4 weeks' duration.
== END 2020-08-07 08:05 | disposition home or self-care (01) ==
LOC: ORPAIN 06:27
DX: M51.16 Intervertebral disc disorders with radiculopathy, lumbar region (principal); I10 Essential (primary) hypertension; E11.9 Type 2 diabetes mellitus without complications; Z90.710 Acquired absence of both cervix and uterus
CPT/HCPCS: 64483; J2250; J1100; J3010; Q9966; 99152

== ENCOUNTER → 2020-10-03 | Outpatient (CLI) | payer BC | END | disposition home or self-care (01) | CPT/HCPCS: 99211 ==

== ENCOUNTER 2020-11-02 06:11 | Day surgery (SDC) | payer BC ==
[2020-10-31 11:19] VITALS: BMI 29.9
[2020-11-02] MEDS ORDERED: LACTATED RINGERS 1,000 ML IV ONE (06:45)
[2020-11-02] MEDS ORDERED: LIDOCAINE 1% (10MG/ML) FOR IV START INTRADERMA ONE (06:45)
[2020-11-02 06:48] VITALS: TEMP 97.2
[2020-11-02 06:52] LABS: Glucose,Whole Blood 160 mg/dL (75-99)
[2020-11-02] MEDS ORDERED: methylPREDNISolone ACETATE 40 MG/ML 1 ML VIAL ONE (07:03)
[2020-11-02] MEDS ORDERED: IOPAMIDOL M200 10 ML VIAL ONE (07:03)
[2020-11-02] MEDS ORDERED: fentaNYL (PF) 50 MCG/ML 2 ML AMP ONE (07:03)
[2020-11-02] MEDS ORDERED: MIDAZOLAM 2 MG/2 ML VIAL ONE (07:03)
[2020-11-02] MEDS ORDERED: ROPIVACAINE 5MG/ML 20ML VIAL ONE (07:03)
[2020-11-02] MEDS ORDERED: IV FLUID CONTINUATION 1,000 ML IV ONE ×2 (07:22)
--- NOTE | 2020-11-02 07:23 | P.PCN ---
Date of Procedure: 11/02/20 Procedure(s) Performed: PREOPERATIVE DIAGNOSIS: 1- Lumbar Degenerative Disc Diseases 2-Lumbar spondylosis with Facet arthropathy without myelopathy. 3-left trochanteric bursitis POSTOPERATIVE DIAGNOSIS: Same as preop diagnosis. PROCEDURE 1. Lumbar epidural steroid injection under fluoroscopic guidance at the L5-S1 level. (Fluoroscopy imaging was available in radiology department) 2. Lumbar epidurogram. 3. Left trochanteric bursa steroid injection under fluoroscopy guidance ANESTHESIA: Monitored anesthesia care as per anesthesia department. EBL: Minimal PROCEDURE INDICATION: The patient with low back pain and radiculitis symptoms unresponsive to conservative treatment. Fluoroscopy was used to optimize visualization of the needle placement and to maximize safety. PROCEDURE DESCRIPTION / TECHNIQUE: The patient was seen and identified in the preoperative area. Risks, benefits, complications including but not limited to infections ,bleeding ,allergic reaction to the medications ,nerve damage and not complete pain releife , and alternatives were discussed with the patient. The patient agreed to proceed with the procedure and signed the consent. IV was started, and vital signs were stable. Patient was taken to the OR and time out was completed. The patient was placed in the prone position on procedure table and a pillow was placed under the abdomen to reduce lumbar lordosis. The lumbosacral area was prepped and draped in the usual sterile fashion.ere closely monitored during the procedure. Conscious sedation was used during the procedure to decrease patients anxiety. Vital signs was monitered during the entire procedure. Using anterior-posterior fluoroscopy, the L5-S1 interlaminar space was identified and the skin over this site was marked and then infiltrated with 1% lidocaine subcutaneously. Subsequently, a 20-gauge Tuohy epidural needle was inserted and advanced toward the epidural space using the ``Loss of resistance technique and guided by AP and lateral fluoroscopy. The correct needle position in the epidural space was verified with the injection of 2 mL of the water soluble contrast dye Isovue 200 contrast and observing an excellent epidurogram with the epidural spread of the dye, after negative aspiration for blood and CSF and in the absence of paresthesias. Again after negative aspiration, a 6 ml mixture containing 40 mg of Depo-medrol , and 2 ml of preservative free Normal Saline, and 2 ml of preservative free lidocaine 1% solution was injected and a washout of epidurogram was seen. Needle was withdrawn intact, Hui left trochanteric bursa and sterile technique by advancing 22 gauge quickie Needle in the left trochanteric bursa area (after local infiltrations with ropivacaine 0.5% 3 ml ) needle placement confirmed under fluoroscopy then after negative aspiration ropivacaine 0.5% 6 ml mixed with 20 mg of Depo-Medrol injected after negative aspiration patient tolerated the procedure well without any complications COMPLICATIONS: None DISPOSITION / PLANS: The patient was placed in a supine position and transferred to the recovery area in a stable condition for observation. There was no evidence of lower extremity motor or sensory deficit after the procedure. Patient was discharged from the recovery room after meeting discharge criteria. Home discharge instructions were given to the patient by the staff. The patient was reexamined prior to discharge. The patient will schedule a follow up in the clinic in 2-4 weeks.
[2020-11-02 07:37] VITALS: RESP 18
[2020-11-02 07:48] VITALS: BP 97/62; PULSE 77
--- NOTE | 2020-11-02 09:22 | FL ---
EXAMINATION TYPE: FL guided pain mgmt statistic DATE OF EXAM: 11/02/2020 HISTORY: Fluoroscopy time 5 seconds of fluoroscopy provided. IMPRESSION: 1. Fluoroscopy time.
== END 2020-11-02 08:06 | disposition home or self-care (01) ==
LOC: ORPAIN 06:11
PROVIDERS: ATTEND Specialist
DX: M47.26 Other spondylosis with radiculopathy, lumbar region (principal); M51.16 Intervertebral disc disorders with radiculopathy, lumbar region; M70.62 Trochanteric bursitis, left hip; I10 Essential (primary) hypertension; E78.5 Hyperlipidemia, unspecified; E11.9 Type 2 diabetes mellitus without complications; Z79.899 Other long term (current) drug therapy
CPT/HCPCS: 62323; 20553; J2250; J1030; J3010; Q9966; J2795; 20610

== ENCOUNTER → 2020-11-28 | Outpatient (CLI) | payer BC ==
[2020-11-28 08:08] VITALS: BP 118/82; PULSE 85; RESP 18; TEMP 98.1
--- NOTE | 2020-11-28 08:14 | P.PN ---
Subjective Progress Note Date: 11/28/20 This is follow-up visit for this 60 years old female with a chronic history of severe low back pain, she is diagnosed with lumbar degenerative disc disease, and lumbar spondylosis with lumbar facet arthropathy, left trochanteric bursitis, previously we have done , lumbar epidural steroid injection and left trochanteric bursa steroid injection , but her pain improved significantly after the injection , pain level 0-2/10 ,she denies any fever or night sweats which denies any change in the bowel movement or urination, denies any motor or sensory deficit ,she is able to ambulate without difficulty, she continued to use [place] when necessary and Flexeril 10 mg twice a day Physical Examinations : -Constitutiona : Cooperative , not in acute distress . -HEENT : nech : supple , no Lymphadenopathy , normal thyroid size . : eyes : no ptosis , no icterus, no photophobia . - neurologic : Cranial nerve II to XII intact , no focal neurological deffecit . -psychatric : alert , oriented X 3 , appropriate affect , intact judgment and insight . -Lymphatic : no Lymphadenopathy . - musculoskeltal : Lumber spine moter stegnth lower extremities ,thigh and legs 5/5 Right side , 5/5 Left tenderness over the left trochanteric bursa . Assessment and plan= 1- lumbar degenerative disc disease .2- lumbar spondylosis with lumbar facet arthropathy . 3-left trochanteric bursitis Improved after lumbar epidural steroid injection and left trochanteric bursa steroid injection, will follow up in the pain clinic when necessary - PQRS measures = - Patient's medications are documented in the chart. -Tobacco use is positive ,and counseling.Given. -Patient's has not received pneumococcal vaccine. -Advanced care planning discussed, patient not eligible. -Opiate contract not signed. -Pain positive and follow-up visit/procedure is scheduled. -Patient's blood pressure measured [ 118/82] , and documented in the record ,and patient will follow up with the primary care. -Patient's weight was measured and body mass index [ 30 ] above the normal limits and counseling was done. and patient instructed to follow-up with the primary care physician. -Patient was not identified as an unhealthy alcohol user Objective - Vital Signs Vital signs: Vital Signs Temp 98.1 F 11/28/20 08:03 Pulse 85 11/28/20 08:03 Resp 18 11/28/20 08:03 BP 118/82 11/28/20 08:03 Pulse Ox 96 11/28/20 08:03
== END | disposition home or self-care (01) ==
LOC: PNWHC3 07:54
PROVIDERS: ATTEND Specialist
DX: M51.36 Other intervertebral disc degeneration, lumbar region (principal); M47.816 Spondylosis without myelopathy or radiculopathy, lumbar region; M46.96 Unspecified inflammatory spondylopathy, lumbar region; M70.62 Trochanteric bursitis, left hip
CPT/HCPCS: 99211

== ENCOUNTER → 2022-07-02 | Outpatient (CLI) | payer BC ==
--- NOTE | 2022-07-03 06:12 | MR ---
EXAMINATION TYPE: MR knee RT wo con DATE OF EXAM: 07/02/2022 COMPARISON: Right knee x-ray June 19, 2022. HISTORY: Rt knee inner and outer pain, swelling and locking TECHNIQUE: Multiplanar, multisequence images of the knee is performed without IV contrast. FINDINGS: MEDIAL MENISCUS: Globular and linear increased signal posterior horn medial meniscus extends to infer ior articular surface. LATERAL MENISCUS: Anterior and posterior horns are intact without tear. CRUCIATE LIGAMENTS: The anterior and posterior cruciate ligaments are intact and unremarkable. COLLATERAL LIGAMENTS: The medial collateral ligament and lateral collateral ligament complex are inta ct and unremarkable. EXTENSOR MECHANISM: Visualized quadriceps and patellar tendons are intact. EFFUSION: No significant suprapatellar joint effusion. POPLITEAL CYST: No popliteal/mike cyst. TRICOMPARTMENT SPACES: Moderate narrowing patellofemoral compartment with mild spurring. Mild spurrin g medial tibial femoral compartment. 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 Areas of full-thickness loss are seen. BONE MARROW SIGNAL: There are areas of heterogeneous increased T2 signal along the posterior aspect o f the patellar pole. OTHER: No additional significant abnormality is appreciated. IMPRESSION: 1. Full-thickness tear posterior horn medial meniscus. 2. At least moderate patellofemoral joint arthropathy as detailed above.
== END | disposition home or self-care (01) ==
LOC: RADMRIMAIN 19:01
PROVIDERS: ATTEND Orthopaedic Surgery
DX: M23.221 Derangement of posterior horn of medial meniscus due to old tear or injury, right knee (principal); M17.11 Unilateral primary osteoarthritis, right knee

== ENCOUNTER 2022-08-22 06:24 | Day surgery (SDC) | payer BC ==
[2022-08-20 10:54] VITALS: BMI 28.7
--- NOTE | 2022-08-21 09:06 | P.HPOR ---
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 She notes diffuse swelling and stiffness. She has intermittent locking and giving way. She's tried a period of rest along with medications and activity modifications without relief. She notes daily pain that limits her. She also notes left knee pain and aching worse with activity. Review of Systems As per HPI Past Medical History Past Medical History: Diabetes Mellitus, Hyperlipidemia, Hypertension, Osteoarthritis (OA), Sleep Apnea/CPAP/BIPAP Additional Past Medical History / Comment(s): Migraines, hx TIA's 10-15 yrs ago, chronic back pain, bilateral knee pain, no CPAP use. History of Any Multi-Drug Resistant Organisms: None Reported Past Surgical History: Cholecystectomy, Hysterectomy, Orthopedic Surgery Additional Past Surgical History / Comment(s): Bilateral trigger finger relaease, left knee arthroscopy, left oophorectomy/salpingectomy, left shoulder arthroscopy, pain clinic procedures. Past Anesthesia/Blood Transfusion Reactions: Previous Problems w/ Anesthesia, Motion Sickness, Postoperative Nausea & Vomiting (PONV) Additional Past Anesthesia/Blood Transfusion Reaction / Comment(s): "Took longer to come out." Hx motion sickness. Vertigo after shoulder surgery. Past Psychological History: No Psychological Hx Reported Additional Psychological History / Comment(s): Hx panic attack years ago. Smoking Status: Never smoker Past Alcohol Use History: Occasional Past Drug Use History: None Reported - Past Family History Sister(s) Family Medical History: Cancer Additional Family Medical History / Comment(s): Colon cancer. Mother Family Medical History: Myocardial Infarction (MT) Brother(s) Family Medical History: Coronary Artery Disease (CAD) Additional Family Medical History / Comment(s): cabg Father Family Medical History: CVA/TIA Medications and Allergies Home Medications Medication Instructions Recorded Confirmed Type HYDROcodone/APAP 7.5-325MG [[place] 1 tab PO HS PRN 02/09/15 08/20/22 History 7.5-325] Dapagliflozin Propanediol [Farxiga] 5 mg PO QAM 09/08/18 08/20/22 History Losartan Potassium 50 mg PO QAM 09/08/18 08/20/22 History Atorvastatin [Lipitor] 10 mg PO QAM 09/21/19 08/20/22 History Glimepiride [Amaryl] 4 mg PO HS 09/21/19 08/20/22 History Aspirin/Acetaminophen/Caffeine 2 each PO DIRECTED PRN 04/11/20 08/20/22 History [Excedrin Extra Strength Caplet] sitaGLIPtin PHOSPHATE [Januvia] 100 mg PO HS 09/28/20 08/20/22 History Ergocalciferol [Vitamin D2 (1250 125 mcg PO TH 08/20/22 08/20/22 History Mcg = 72454 Iu)] Glimepiride [Amaryl] 2 mg PO QAM 08/20/22 08/20/22 History Allergies Allergy/AdvReac Type Severity Reaction Status Date / Time No Known Allergies Allergy Verified 08/20/22 10:36 Physical Examination - Knee right Appearance: effusion Effusion grade: grade 1 Varus alignment in stance: 5 degrees Tenderness with palpation: anterior, medial Pain: throughout ROM Gait: limping ROM: extension: -10 degrees ROM: flexion: 100 degrees Crepitus with motion: Yes Strength: extension: 5/5 Strength: flexion: 5/5 Meniscal tests: medial meniscal tests: positive, medial joint line pain: positive Results Patient is a well-developed well-nourished female approximately 5 foot 5, 180 pounds of endomorphic habitus. HEENT exam is nonfocal, neck is supple. She has painless passive motion of the right hip. Straight leg raise is negative. Her distal neurovascular appears intact right lower extremity. Left knee range of motion -6 full extension/130 of flexion. She has a trace effusion. She is tender about the medial joint line. She has genu varum alignment. - Diagnostic results Knee MRI: image reviewed (Right knee MRI shows evidence of a posterior medial meniscal tear along with patellofemoral DJD) Assessment and Plan Assessment: Right knee internal derangement/symptomatic medial meniscal tear Left knee medial compartment osteoarthrosis Plan: I talked to the patient went regarding her conditions along with treatment options. This point her right knee is quite symptomatic having both pain and mechanical symptoms. We will plan proceeding with right knee arthroscopy with probable partial medial meniscectomy. She also like to proceed with aspiration and cortisone injection for her left knee. We will like to perform that as an outpatient procedure. Risks and benefits were discussed at length in layman's terms.
[2022-08-22] MEDS ORDERED: DEXAMETHASONE SOD PHOSPHATE 4 MG/ML 1 ML VIAL IV ONE (06:47)
[2022-08-22] MEDS ORDERED: LACTATED RINGERS 1,000 ML IV SCH (06:47)
[2022-08-22] MEDS ORDERED: MIDAZOLAM 2 MG/2 ML VIAL IV PRN (06:47)
[2022-08-22] MEDS ORDERED: ONDANSETRON 4 MG/2 ML VIAL IVP ONE (06:47)
[2022-08-22] MEDS ORDERED: SCOPOLAMINE 1 MG/72 HR PATCH TRANSDERM ONE (06:47)
[2022-08-22 07:10] LABS: Glucose,Whole Blood 179 mg/dL (70-110)
[2022-08-22] MEDS ORDERED: PROPOFOL 10 MG/ML 20 ML VIAL IV ONE (07:24)
[2022-08-22] MEDS ORDERED: LIDOCAINE 2% INJ 20 MG/ML (2 ML VIAL) ONE (07:24)
[2022-08-22] MEDS ORDERED: fentaNYL (PF) 50 MCG/ML 2 ML AMP ONE (07:24)
[2022-08-22] MEDS ORDERED: MIDAZOLAM 2 MG/2 ML VIAL ONE (07:24)
[2022-08-22] MEDS ORDERED: methylPREDNISolone ACETATE 40 MG/ML 1 ML VIAL INTRAARTIC ONE (07:50)
[2022-08-22] MEDS ORDERED: LIDOCAINE 2% (PF) 20 MG/ML 5 ML VIAL INTRAARTIC ONE (08:05)
--- NOTE | 2022-08-22 08:21 | P.OP ---
Date of Procedure: 08/22/22 Preoperative Diagnosis: Right knee internal derangement/left knee osteoarthrosis Postoperative Diagnosis: Right knee posterior medial meniscal tear/posterior lateral meniscal tear Procedure(s) Performed: Right knee arthroscopic partial medial meniscectomy/partial lateral meniscectomy Aspiration left knee with cortisone injection Anesthesia: KACY Surgeon: Steven Hill Estimated Blood Loss (ml): 10 Pathology: none sent Condition: stable Disposition: PACU Indications for Procedure: The patient is a 61-year-old female who presents with progressive right knee pain and mechanical symptoms despite conservative measures. She'll was also noted to have arthritis involving her left knee with persistent symptoms. A discussion of the risks and benefits of operative intervention versus continued conservative measures was made with patient. She opted proceed with surgery. Operative risks to include infection, neurovascular injury, development of blood clots, incomplete resolution of symptoms, possible worsening symptoms and need for subsequent procedures was discussed. Operative Findings: As below Description of Procedure: The patient was brought to the operating room, and after induction of general anesthesia examined the right knee. Collaterals were stable, Jeremiah was negative, and posterior drawer was negative. The right lower extremity was prepped and draped in a normal fashion. A superior lateral portal was made through a 3 mm skin incision superior and lateral to the patella. This was used for outflow. A lateral portal was made through a 5 mm vertical skin incision lateral to the patella tendon above the joint line. Diagnostic arthroscopy was performed. On inspection of the medial compartment, and oblique tear involving the posterior most aspect the medial meniscus in the white-white junction was noted. This was debrided back to stable base with straight baskets and a motorized shaver. Grade 2/3 chondral changes were noted diffusely involving the lateral aspect of the medial femoral condyle.. On inspection of the notch, the anterior cruciate ligament appeared to be intact. On inspection of the lateral compartment, and oblique tear involving the posterior most aspect of the lateral meniscus in the white-white junction was noted. This was debrided back to a stable base with straight baskets and a motorized shaver. There was some chondral fibrillation involving the lateral femoral condyle. On inspection of the patellofemoral articulation, grade 2 chondral changes were noted diffusely however there were no loose cartilage fragments.. The gutters were clear debr is. The knee was then thoroughly irrigated. The portals were closed with Steri-Strips. A sterile dressing was applied in addition to a compression stocking. The left lateral knee was prepped with ChloraPrep. Once cc of serous joint fluid was aspirated. 40 mg of Depo-Medrol along with 2 mL of 2% plain lidocaine was injected. The patient was awoken from general anesthesia and transferred to recovery room in good condition. Blood loss was estimated at 10 mL. No complications were incurred.
[2022-08-22] MEDS ORDERED: SODIUM CHLORIDE 0.9% 1,000 ML IV ONE ×2 (08:35)
[2022-08-22] MEDS: HYDROmorphone 0.5 MG/0.5 ML SYRINGE IVP PRN ×2 (08:36→08:49)
[2022-08-22] MEDS ORDERED: droPERidol 5 MG/2 ML VIAL IVP ONE (08:39)
[2022-08-22 08:48] VITALS: TEMP 97
[2022-08-22 08:53] LABS: Glucose,Whole Blood 167 mg/dL (70-110)
[2022-08-22 09:50] VITALS: RESP 20
[2022-08-22] MEDS ORDERED: HYDROcodone/APAP 5-325MG 1 EACH TAB PO ONE (10:06)
[2022-08-22] MEDS ORDERED: HYDROcodone/APAP 5-325MG 1 EACH TAB ONE (10:06)
[2022-08-22 11:03] VITALS: BP 123/79; PULSE 92
== END 2022-08-22 11:04 | disposition home or self-care (01) ==
LOC: OR 06:24
PROVIDERS: ATTEND Orthopaedic Surgery
DX: S83.241A Other tear of medial meniscus, current injury, right knee, initial encounter (principal); S83.281A Other tear of lateral meniscus, current injury, right knee, initial encounter; M23.92 Unspecified internal derangement of left knee; M17.12 Unilateral primary osteoarthritis, left knee; M25.561 Pain in right knee; X58.XXXA Exposure to other specified factors, initial encounter; E11.9 Type 2 diabetes mellitus without complications; I10 Essential (primary) hypertension; E78.5 Hyperlipidemia, unspecified; G43.909 Migraine, unspecified, not intractable, without status migrainosus; F41.1 Generalized anxiety disorder; G47.33 Obstructive sleep apnea (adult) (pediatric); F10.20 Alcohol dependence, uncomplicated; Z86.73 Personal history of transient ischemic attack (TIA), and cerebral infarction without residual deficits; Z79.84 Long term (current) use of oral hypoglycemic drugs; Z79.899 Other long term (current) drug therapy; Z98.890 Other specified postprocedural states
CPT/HCPCS: 20610; 29877; J1030

== ENCOUNTER → 2024-06-01 | Outpatient (CLI) | payer BC ==
[2024-06-01 10:48] LABS: BUN/Creat Ratio 19.88 Ratio (12.00-20.00); Basophils # (A) 0.04 X 10*3/uL (0.00-0.10); Basophils % (A) 0.8 %; Blood Urea Nitrogen 15.9 mg/dL (9.0-27.0); Calcium 9.7 mg/dL (8.7-10.3); Chloride 106 mmol/L (96-109); Eosinophils # (A) 0.11 X 10*3/uL (0.04-0.35); Eosinophils % (A) 2.3 %; Glucose 136 mg/dL (70-110); HCT 37.5 % (37.2-46.3); HGB 13.1 g/dL (12.0-15.0); Lymphocytes # (A) 1.91 X 10*3/uL (0.90-5.00); Lymphocytes % (A) 40.4 %; MCH 33.5 pg (27.0-32.0); MCHC 34.9 g/dL (32.0-37.0); MCV 95.9 FL (80.0-97.0); Mean Platelet Volume 10.9 FL (9.5-12.2); Monocytes # (A) 0.28 X 10*3/uL (0.20-1.00); Monocytes % (A) 5.9 %; NRBC Per 100 WBC 0 X 10*3/uL (0.00-0.01); Neutrophils # (A) 2.38 X 10*3/uL (1.80-7.70); Neutrophils % (A) 50.4 %; Platelet Count 201 X 10*3/uL (140-440); Potassium 4.3 mmol/L (3.5-5.5); RBC 3.91 X 10*6/uL (4.10-5.20); RDW 12.1 % (11.5-14.5); Sodium 142 mmol/L (135-145); WBC 4.73 X 10*3/uL (4.50-10.00)
== END | disposition home or self-care (01) ==
LOC: LABPAT 07:14
PROVIDERS: ATTEND Orthopaedic Surgery
DX: Z01.812 Encounter for preprocedural laboratory examination (principal); M65.321 Trigger finger, right index finger
CPT/HCPCS: 80048; 85025

== ENCOUNTER 2024-06-17 06:16 | Day surgery (SDC) | payer BC ==
--- NOTE | 2024-06-16 08:18 | P.HPOR ---
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 She notes locking in addition to loss of strength. She notes it bothers her daily. She has tried medications without much relief. Review of Systems Per HPI Past Medical History Past Medical History: Diabetes Mellitus, Hyperlipidemia, Hypertension, Osteoarthritis (OA), Sleep Apnea/CPAP/BIPAP Additional Past Medical History / Comment(s): hx of disassociated migraines , dx TIA's 10-15 yrs ago no residuals , chronic back pain. Does not use C-PAP. hx of HTN off meds for 3 months. allergies History of Any Multi-Drug Resistant Organisms: None Reported Past Surgical History: Cholecystectomy, Hysterectomy, Orthopedic Surgery Additional Past Surgical History / Comment(s): farzana hand ring finger -trigger finger, left knee arthroscopy, left oophorectomy/salpingectomy,lt shoulder arthroscopy, pain clinic procedures. rt knee meniscus repair Past Anesthesia/Blood Transfusion Reactions: Previous Problems w/ Anesthesia, Postoperative Nausea & Vomiting (PONV) Additional Past Anesthesia/Blood Transfusion Reaction / Comment(s): "took longer to come out" Smoking Status: Never smoker - Past Family History Sister(s) Family Medical History: Cancer Additional Family Medical History / Comment(s): Colon cancer. kidney disease. Mother Family Medical History: Diabetes Mellitus Additional Family Medical History / Comment(s): Brother(s) Family Medical History: Coronary Artery Disease (CAD) Additional Family Medical History / Comment(s): cabg Father Family Medical History: Diabetes Mellitus Additional Family Medical History / Comment(s): Medications and Allergies Home Medications Medication Instructions Recorded Confirmed Type Atorvastatin [Lipitor] 10 mg PO QAM 09/21/19 06/15/24 History Ergocalciferol [Vitamin D2 (1250 125 mcg PO TH 08/20/22 06/15/24 History Mcg = 09994 Iu)] HYDROcodone/APAP 10-325MG [[place] 1 tab PO DIRECTED PRN 06/15/24 06/15/24 History 10-325] Tirzepatide [Mounjaro] 2.5 mg SQ TH 06/15/24 06/15/24 History Unk Excederin 1 tab PO DIRECTED PRN 06/15/24 06/15/24 History Unk Fish Oil 1 tab PO DAILY 06/15/24 06/15/24 History Allergies Allergy/AdvReac Type Severity Reaction Status Date / Time No Known Allergies Allergy Verified 06/15/24 11:36 Physical Examination - Wrist & Hand right Location of pain: other (A1 kobe right index finger) Index finger pain modifiers: with motion Results Patient is a well-developed well-nourished female approximately 5 foot 5, 159 pounds of endomorphic habitus. HEENT exam is nonfocal, neck is supple. She is nontender about the right wrist. On examination of the right hand she is tender over the index finger A1 kobe. She has palpable triggering and a palpable nodule. She has mild limitation of motion. Light touch is distally intact. Assessment and Plan Assessment: Right index trigger fingersymptomatic Plan: I talked to the patient at length regarding her condition along with treatment options. At this point she is quite symptomatic having pain and locking. After a thorough discussion she opts to proceed with surgery. We will plan to proceed with right index trigger finger release. We will perform that utilizing local anesthetic and IV sedation as an outpatient procedure. Risks and benefits were discussed at length in layman's terms.
[~2024-06-17 06:16] MED LIST changes: +HYDROmorphone 0.5 MG/0.5 ML SYRINGE IVP PRN; -LACTATED RINGERS 1,000 ML IV SCH; +LIDOCAINE 1% (10MG/ML) FOR IV START INTRADERMA PRN; +fentaNYL (PF) 50 MCG/ML 2 ML AMP IVP PRN
[2024-06-17 06:55] LABS: Glucose,Whole Blood 130 mg/dL (70-110)
[2024-06-17] MEDS: MIDAZOLAM 2 MG/2 ML VIAL IV PRN (06:57)
[2024-06-17] MEDS: ONDANSETRON 4 MG/2 ML VIAL IVP ONE (06:57)
[2024-06-17] MEDS: DEXAMETHASONE SOD PHOSPHATE 4 MG/ML 1 ML VIAL IV ONE (06:57)
[2024-06-17] MEDS: IV FLUID CONTINUATION 1,000 ML IV ONE (07:07)
[2024-06-17] MEDS: LACTATED RINGERS 1,000 ML IV SCH (07:09)
[2024-06-17] MEDS ORDERED: MIDAZOLAM 2 MG/2 ML VIAL ONE (07:28)
[2024-06-17] MEDS ORDERED: KETAMINE HCL IN 0.9 % NACL 50 MG/5 ML SYRINGE ONE (07:28)
[2024-06-17] MEDS ORDERED: PROPOFOL 10 MG/ML 20 ML VIAL IV ONE (07:28)
[2024-06-17] MEDS ORDERED: GLYCOPYRROLATE 0.2 MG/ML 2 ML VIAL ONE (07:28)
[2024-06-17] MEDS ORDERED: ALBUTEROL HFA INHALER INHALATION ONE (07:28)
[2024-06-17] MEDS ORDERED: LIDOCAINE 1% INJ 10MG/ML (20 ML MDV) ONE (07:28)
[2024-06-17] MEDS: BUPIVACAINE (PF) 0.25% 30 ML VIAL SQ ONE ×2 (07:49→08:07)
--- NOTE | 2024-06-17 08:16 | P.OP ---
Date of Procedure: 06/17/24 Preoperative Diagnosis: Right index trigger fingersymptomatic Postoperative Diagnosis: Same Procedure(s) Performed: Right index trigger finger release Anesthesia: MAC, local Surgeon: Steven Hill Estimated Blood Loss (ml): 1 Pathology: none sent Condition: stable Disposition: PACU Indications for Procedure: The patient is a 63-year-old female who presents with persistent/progressive right index finger pain and locking despite conservative measures. A discussion of the risks and benefits of operative intervention versus continued conservative measures was made with the patient. She opted to proceed with surgery. Operative risks include infection, neurovascular drip, development of blood clots, possible incomplete resolution of symptoms, possible worsening of symptoms and need for subsequent procedures was discussed. Informed consent was obtained. Operative Findings: As below Description of Procedure: The patient was brought to the operating room and after induction of IV sedation right upper extremity was prepped and draped in normal fashion. The tourniquet was inflated to 270 mmHg. The proposed incision site was outlined with a skin marker just proximal to the distal palmar crease measuring approximate 1 cm in line with the right index finger. 8 mL of quarter percent plain Marcaine was injected into the proposed incision site. The skin was incised sharply. Subcutaneous tissues were divided bluntly. The neurovascular bundles were gently retracted. The A1 kobe was then identified and transected under direct visualization proximally and distally. There was nodularity of the flexor tendo n. I felt I had adequate release at this point. The wound was irrigated normal saline. The skin was reapproximated with simple 4-0 nylon sutures. A sterile dressing was applied. The tourniquet was deflated with less than 15 minutes total tourniquet time. Blood loss was estimated at 1 mL. the case were incurred. Sponge and needle counts were correct at the end of the case.
[2024-06-17 08:25] VITALS: TEMP 98.6
[2024-06-17] MEDS: METOCLOPRAMIDE 5 MG/ML 2 ML VIAL IVP STA (08:34)
[2024-06-17 09:23] VITALS: RESP 16
[2024-06-17 10:02] VITALS: BP 122/75; PULSE 96
== END 2024-06-17 10:00 | disposition home or self-care (01) ==
LOC: OR 06:16
PROVIDERS: ATTEND Orthopaedic Surgery
DX: M65.321 Trigger finger, right index finger (principal); M19.90 Unspecified osteoarthritis, unspecified site; E11.9 Type 2 diabetes mellitus without complications; E78.5 Hyperlipidemia, unspecified; I10 Essential (primary) hypertension; G47.30 Sleep apnea, unspecified; Z86.73 Personal history of transient ischemic attack (TIA), and cerebral infarction without residual deficits; Z90.710 Acquired absence of both cervix and uterus; Z90.49 Acquired absence of other specified parts of digestive tract; Z90.722 Acquired absence of ovaries, bilateral; Z90.79 Acquired absence of other genital organ(s); Z80.0 Family history of malignant neoplasm of digestive organs; Z83.3 Family history of diabetes mellitus; Z82.49 Family history of ischemic heart disease and other diseases of the circulatory system; Z79.02 Long term (current) use of antithrombotics/antiplatelets; Z79.899 Other long term (current) drug therapy
CPT/HCPCS: 26055; J2250; J1100; J2765; J0690; J2405; J2003; J2704; J0665; J1596